=== PATIENT | male | born 1945 | race Caucasian/White ===

== ENCOUNTER 2019-11-20 10:16 | Outpatient (RCR) | payer MEDICAID, SELFPAY | END 2019-11-20 23:59 | disposition home or self-care (01) | LOC: ANHAUDIO 10:16 | PROVIDERS: PCP Family Medicine; Visit Provider Family Medicine | DX: Z46.1 Encounter for fitting and adjustment of hearing aid (principal) | CPT/HCPCS: V5160; V5261 ==

== ENCOUNTER 2020-05-10 15:30 | Emergency (ER) | payer MEDICARE, MEDICAID, SELFPAY ==
--- NOTE | ~2020-05-10 | CT_ITS ---
EXAMINATION: CT brain wo con DATE: 05/10/2020 16:06 INDICATION: Headache TECHNIQUE: Computed tomography (CT) of the head was performed without intravenous contrast. Sagittal and coronal reconstructions were performed. The mA was adjusted according to patient size. Iterative reconstruction technique was employed. The dose-length product was 605.33 mGy-cm. COMPARISON: head CT dated 09/03/2006 FINDINGS: No acute intracranial hemorrhage, acute infarction or abnormal extra axial fluid collection. There is mild scattered white matter hypoattenuation consistent with chronic small vessel ischemic disease. V entricles are normal and symmetric. No mass/mass effect. Changes of bilateral intraocular lens replac ement. The orbits, paranasal sinuses and mastoid air cells are normal. Intracranial calcified cerebra l atherosclerosis is noted. IMPRESSION: 1. Mild scattered white matter hypoattenuation consistent with chronic small vessel ischemic disease. No acute intracranial process. Reviewed, dictated and finalized at location A. IMPRESSION: 1. Mild scattered white matter hypoattenuation consistent with chronic small ve ssel ischemic disease. No acute intracranial process.
--- NOTE | ~2020-05-10 | CT_ITS ---
EXAMINATION: CT cervical spine wo con DATE: 05/10/2020 16:06 INDICATION: Neck pain TECHNIQUE: Computed tomography (CT) of the cervical spine was performed without intravenous contrast. Automated exposure control and iterative reconstruction technique were employed. The dose-length pro duct was 503.01 mGy-cm. COMPARISON: Neck CT dated 09/05/2006 FINDINGS: C5-C6 and C6-C7 discectomies and partial C6 corpectomy with anterior spinal fusion with solidly fused bone strut grafts at both levels. Mild kyphosis at these levels. Unfused vertebral body and disc hei ghts are normal. Prominent anterior osteophytes and ossification along the anterior longitudinal liga ment extending from C2 through T1. No acute fracture. There are some hypertrophic change along the po sterior endplate of C6 resulting in mild central canal stenosis. Bilateral mild to moderate multileve l uncovertebral and facet osteoarthritis resulting in multilevel mild bilateral neural foraminal sten osis throughout the cervical spine. Atherosclerotic calcific a cyst at the bilateral carotid bulbs. T here are few surgical clips along the right common carotid artery and carotid bulb. Cervical soft tis sues are otherwise unremarkable. There are few calcified lymph nodes in the superior mediastinum cons istent with old granulomatous disease. Visualized portions of the airway and apices of the lungs are clear. IMPRESSION: 1. Cervical spondylosis with mild to moderate multilevel facet and uncovertebral osteoarthritis and C 5-C7 anterior spinal fusion. No acute osseous abnormality. Reviewed, dictated and finalized at location A. IMPRESSION: 1. Cervical spondylosis with mild to moderate multilevel facet and uncovertebra l osteoarthritis and C5-C7 anterior spinal fusion. No acute osseous abnormality .
[2020-05-10 15:33] VITALS: BP 151/86; PULSE 76; RESP 20; TEMP 37.1; O2SAT 100
--- NOTE | 2020-05-10 15:52 | ECG_ITS ---
Measurements Intervals [place] Rate: 73 P: 19 MT: 215 QRS: -42 QRSD: 121 T: 8 QT: 410 QTc: 453 Interpretive Statements SINUS RHYTHM WITH FIRST DEGREE AV BLOCK RIGHT BUNDLE BRANCH BLOCK INFERIOR INFARCT, AGE INDETERMINATE BASELINE WANDER- I, II, V1-V3 ABNORMAL ECG Electronically Signed On 05-11-2020 8:08:50 CDT by George Thompson D.O.
--- NOTE | 2020-05-10 15:56 | ED.HA ---
HPI - Headache General Chief Complaint: Headache Stated Complaint: headache/blurred vision Time Seen by Provider: 05/10/20 15:42 History of Present Illness HPI Narrative: Patient is a 74-year-old male who presents the ER with headache. residential reports that they gave him Tylenol the headache did not improve and they became concerned. Patient also reports double vision but he is also been reporting this over the last month since having cataract surgery. Patient reports double vision is intermittent and he is not currently suffering double vision at this time. Headache is in the back of his head near his neck. Reports he has recurrent falls. He is unsure when he fell last. Patient is oriented x3 but otherwise he cannot give a good history regarding his history of medical issues or as to why he is in a group home. Related Data Home Medications Medication Instructions Recorded Confirmed alprazolam 1 mg PO TID PRN 05/10/20 furosemide 40 mg PO DAILY 05/10/20 gabapentin 300 mg PO TID 05/10/20 insulin lispro 1 sliding scale dose SUBCUT 05/10/20 USEASDIRECTD metformin 500 mg PO DAILY 05/10/20 mirabegron [Myrbetriq] 50 mg PO DAILY 05/10/20 pantoprazole 40 mg PO HS 05/10/20 ranolazine 500 mg PO Q12H 05/10/20 sertraline 100 mg PO DAILY 05/10/20 simvastatin 40 mg PO DAILY 05/10/20 tamsulosin 0.4 mg PO DAILY 05/10/20 Allergies Allergy/AdvReac Type Severity Reaction Status Date / Time No Known Allergies Allergy Unknown Verified 05/10/20 15:41 Review of Systems Review of Systems: All systems reviewed & are unremarkable except as noted in HPI and below (Poor historian) Constitutional: Constitutional: Denies chills, Denies fever(s) and Denies weakness Eyes: Eyes: Reports change in vision (Diplopia intermittent) ENT: Denies nasal congestion and Denies sore throat Cardiovascular: Cardiovascular: Denies chest pain and Denies radiating jaw, neck or arm pain Respiratory: Respiratory: Denies cough, Denies dyspnea and Denies wheezing Gastrointestinal: Gastrointestinal: Denies abdominal pain, Denies nausea and Denies vomiting Neurologic: Denies dizziness, Reports headache(s), Denies focal weakness and Denies numbness [facility] Past Medical History Medical History (Updated 05/10/20 @ 18:00 by Gus Rivas MD) Anxiety BPH (benign prostatic hyperplasia) Depression Diabetes type 2, controlled History of CHF (congestive heart failure) History of coronary artery disease Hypercholesterolemia Hypertension Surgical History Surgical History (Updated 05/10/20 @ 16:00 by Gus Rivas MD) Hx of cataract surgery Social History Social History (Updated 05/10/20 @ 16:02 by Gus Rivas MD) Smoking status: Never smoker Alcohol intake: never Exam Narrative: Exam Narrative: GENERAL: Well-appearing, well-nourished, and in no acute distress. HEAD: Normocephalic, atraumatic. EYES: PERRL and EOMI. ENT: Mucous membranes moist. NECK: Supple. Mild right paravertebral muscle tenderness without midline tenderness or left sided muscular tenderness. CHEST: Clear to auscultation. No respiratory distress. HEART: Regular rate and rhythm. Normal peripheral pulses. EXTREMITIES: Normal range of motion. No edema. NEURO: Alert and oriented x3. PSYCH: Normal mood and affect. Course Course Emergency Course: Patient informed of results. Discharge home. No longer has a headache. Vital Signs Vital signs: Vital Signs Temperature 98.7 F 05/10/20 15:33 Pulse Rate 76 05/10/20 15:33 Respiratory Rate 20 05/10/20 15:33 Blood Pressure 151/86 H 05/10/20 15:33 Pulse Oximetry 100 05/10/20 15:33 Temperature 98.7 F 05/10/20 15:33 Pulse Rate 73 05/10/20 17:23 Respiratory Rate 20 05/10/20 17:23 Blood Pressure 153/79 H 05/10/20 17:23 Pulse Oximetry 98 05/10/20 17:23 Discharge Plan Discharge Clinical Impression: Headache Patient Disposition: Home, Self-Care Condition:
[2020-05-10 17:23] VITALS: BP 153/79; PULSE 73; RESP 20; O2SAT 98
[2020-05-10 19:37] VITALS: BP 140/80; PULSE 74; RESP 20; TEMP 36.7; O2SAT 99
== END 2020-05-10 20:05 | disposition home or self-care (01) ==
PROVIDERS: Emergency Provider Emergency Medicine; PCP Family Medicine
DX: R51 Headache (principal); N40.0 Benign prostatic hyperplasia without lower urinary tract symptoms; I50.9 Heart failure, unspecified; E11.9 Type 2 diabetes mellitus without complications; I25.10 Atherosclerotic heart disease of native coronary artery without angina pectoris; E78.00 Pure hypercholesterolemia, unspecified; I11.0 Hypertensive heart disease with heart failure; F32.9 Major depressive disorder, single episode, unspecified; F41.9 Anxiety disorder, unspecified; Z98.49 Cataract extraction status, unspecified eye; Z79.4 Long term (current) use of insulin; Z79.84 Long term (current) use of oral hypoglycemic drugs; I44.0 Atrioventricular block, first degree; I45.10 Unspecified right bundle-branch block; R94.31 Abnormal electrocardiogram [ECG] [EKG]
CPT/HCPCS: 70450; 72125; 93005; 99284

== ENCOUNTER 2020-09-09 12:39 | Outpatient (CLI) | payer MEDICARE, MEDICAID, SELFPAY ==
--- NOTE | ~2020-09-09 | XR_ITS ---
XR abdomen/kub 1V 09/09/2020 12:58 Indication: Gross hematuria Procedure: KUB Comparison: No prior studies for comparison. Findings: There are multiple bilateral renal stones. There are multiple calcified granulomas of the spleen. The kidneys are somewhat obscured by bowel content. There are cholecystectomy clips. Nonobstructive jabier l gas pattern. Impression: 1: Bilateral nephrolithiasis. Reviewed, dictated and finalized at location B. Impression: 1: Bilateral nephrolithiasis.
--- NOTE | ~2020-09-09 | CT_ITS ---
EXAMINATION: CT abdomen pelvis wo/w con EXAM DATE: 09/09/2020 13:35 INDICATION: Gross hematuria. TECHNIQUE: Spiral CT of the abdomen and pelvis was performed without contrast. The patient was then injected with small bolus intravenous Omnipaque 350, followed by delay of approximately 10 minutes to allow collecting system to opacify. A post contrast scan abdomen and pelvis was performed during inj ection of remaining contrast. A total of 130 cc intravenous contrast was administered. The dose-dana th product (DLP) for this examination was 3085.42 mGy-cm. The exposure was tailored according to pat ient size (auto mA exposure control), and iterative reconstruction (ASIR) was used as additional dose reduction technique. There is no prior study for comparison. FINDINGS: There are 4 right-sided calyceal stones. 3 left-sided calyceal stones, largest on the right measuring 4 mm in thickness by 12 mm in length. Patulous appearing ureters bilaterally, however ther e are no obstructing ureteral stones. Small bilateral inguinal fat-containing hernias. The kidneys en milagros symmetrically. There are no suspicious renal lesions. The calyces and opacified portions of u reters are unremarkable, without filling defects or focal suspicious strictures. Only minimal contra st in the bladder, however no evidence of focal wall thickening. Probable TURP versus prostatectomy, correlate with history. Nodular cirrhotic liver. Gallbladder not identified, patient likely has had cholecystectomy. Splenic granulomata. Adrenal glands and pancreas are unremarkable. There is no retroperitoneal or pelvic ly mphadenopathy. There is mild scattered arteriosclerotic disease. The appendix is normal. The stomach and small bowel are unremarkable. There is expected amount of c olonic stool. No free intraperitoneal gas. The heart is normal in size. There are no pericardial or pleural effusions. Scattered regions of bibasilar scarring/atelectasis. There are no osteoblast ic or osteolytic lesions identified. IMPRESSION: 1. Bilateral nephrolithiasis. 2. Small inguinal hernias. 3. Cirrhosis. 4. Basilar scarring, bronchiectasis. Reviewed, dictated and finalized at location A.
[2020-09-09 13:11] LABS: Estimated Glomerular Filt Rate > 60
== END 2020-09-09 12:40 | disposition home or self-care (01) ==
PROVIDERS: PCP Family Medicine; Visit Provider Nurse Practitioner Adult Health
DX: R31.0 Gross hematuria (principal); N20.0 Calculus of kidney; K40.90 Unilateral inguinal hernia, without obstruction or gangrene, not specified as recurrent; K74.69 Other cirrhosis of liver; R91.8 Other nonspecific abnormal finding of lung field
CPT/HCPCS: 74018; 74178; Q9967

== ENCOUNTER 2020-10-02 11:43 | Outpatient (CLI) | payer MEDICARE, MEDICAID, SELFPAY ==
--- NOTE | ~2020-10-02 | XR_ITS ---
EXAMINATION: XR abdomen/kub 1V EXAM DATE: 10/02/2020 12:14 INDICATION: Right renal stone. TECHNIQUE: Frontal projection(s) of the abdomen for interpretation. Comparison is made to prior exami nation from 09/09/2020. FINDINGS: Probable identification of bilateral nephrolithiasis. Nonobstructive bowel gas pattern. Num erous splenic granulomata. There are cholecystectomy clips. Lumbar spondylosis and hip osteoarthritis . IMPRESSION: Bilateral nephrolithiasis. Reviewed, dictated and finalized at location A. 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
== END 2020-10-02 11:44 | disposition home or self-care (01) ==
PROVIDERS: PCP Internal Medicine; Visit Provider Nurse Practitioner Adult Health
DX: N20.0 Calculus of kidney (principal)
CPT/HCPCS: 74018

== ENCOUNTER 2020-10-07 02:58 | Outpatient (CLI) | payer MEDICARE, MEDICAID, SELFPAY ==
[2020-10-07 19:46] LABS: SARS-CoV-2 RNA PCR Negative
== END 2020-10-07 02:59 | disposition home or self-care (01) ==
LOC: ANHCOVIDDT 02:59
PROVIDERS: PCP Internal Medicine; Visit Provider Urology
DX: Z01.818 Encounter for other preprocedural examination (principal); Z20.828 Contact with and (suspected) exposure to other viral communicable diseases
CPT/HCPCS: 36415; 80048; 85610; 85730; 87077; 87086; 87088; 87186; 87635; C9803; U0003

== ENCOUNTER 2020-10-07 08:31 | Outpatient (CLI) | payer MEDICARE, MEDICAID, SELFPAY ==
[2020-10-07 09:16] LABS: INR 1.1; Partial Thromboplastin Time 28.6 SECONDS (22.3-36.8); Prothrombin Time 14.4 Seconds (11.1-14.7)
[2020-10-07 09:19] LABS: Anion Gap 10 mmol/L (8-16); Blood Urea Nitrogen 20 mg/dL (9-20); Calcium 9.8 mg/dL (8.4-10.2); Carbon Dioxide 31 mmol/L (22-30); Chloride 98 mmol/L (98-107); Estimated Glomerular Filt Rate 59; Glucose 131 mg/dL (75-110); Potassium 4.4 mmol/L (3.4-5.0); Sodium 139 mmol/L (137-145)
== END 2020-10-07 08:32 | disposition home or self-care (01) ==
PROVIDERS: Anesthesiology; PCP Internal Medicine; Visit Provider Urology
DX: N20.0 Calculus of kidney (principal); E11.9 Type 2 diabetes mellitus without complications; Z01.818 Encounter for other preprocedural examination
CPT/HCPCS: 36415; 80048; 85610; 85730; 87077; 87086; 87088; 87186

== ENCOUNTER 2020-10-10 04:43 | Day surgery (SDC) | payer MEDICARE, MEDICAID, SELFPAY ==
[2020-10-06 15:00] VITALS: BMI 43.5
--- NOTE | 2020-10-07 08:04 | PM.HPGS ---
History of Present Illness History of Present Illness Consent: Risks, benefits, and alternatives have been discussed and questions answered. Patient agrees to proceed with procedure. Chief complaint: Right Renal Stone, Gross Hematuria Narrative: Iain Ricks Sr. is a 75 year old male who recently underwent evaluation for obstructive voiding symptoms and hematuria. CT of the abdomen and pelvis revealed bilateral he renal stones, greater in size and number on the right. After discussion of options, including observation endoscopic approach and ESWL, he elected for the latter. Review of Systems Cardiovascular: Cardiovascular: Denies chest pain, Denies lightheadedness, Denies palpitations and Denies dyspnea Respiratory: Respiratory: Denies dyspnea Gastrointestinal: Gastrointestinal: Denies diarrhea, Denies nausea and Denies vomiting Genitourinary: Genitourinary: Denies hematuria and Denies dysuria Endocrine: Endocrine: Denies palpitations PMFSH Past Medical History Medical History Anxiety BPH (benign prostatic hyperplasia) Depression Diabetes type 2, controlled History of CHF (congestive heart failure) History of coronary artery disease Hypercholesterolemia Hypertension Surgical History Surgical History Hx of cataract surgery Social History Social History Smoking status: Never smoker Alcohol intake: former Substance use: unknown Additional living arrangements comments: ALONE, CAREGIVER 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 Spiritual care concerns: No Meds Home Medications and Allergies Home Medications Medication Instructions Recorded Confirmed Type alprazolam 1 mg PO TID 05/10/20 10/06/20 History metformin 500 mg PO DAILY 05/10/20 10/06/20 History mirabegron [Myrbetriq] 50 mg PO DAILY 05/10/20 10/06/20 History ranolazine [Ranexa] 500 mg PO Q12H 05/10/20 10/06/20 History simvastatin 40 mg PO DAILY 05/10/20 10/06/20 History tamsulosin 0.4 mg PO DAILY 05/10/20 10/06/20 History aspirin [Aspir-81] 81 mg PO DAILY 10/06/20 10/06/20 History carvedilol 6.25 mg PO BID 10/06/20 10/06/20 History celecoxib 200 mg PO DAILY 10/06/20 10/06/20 History ergocalciferol (vitamin D2) 50,000 unit PO 2XW 10/06/20 10/06/20 History finasteride 5 mg PO DAILY 10/06/20 10/06/20 History losartan 50 mg PO DAILY 10/06/20 10/06/20 History pantoprazole 40 mg PO DAILY 10/06/20 10/06/20 History potassium citrate 40 meq PO DAILY 10/06/20 10/06/20 History pregabalin [Lyrica] 75 mg PO BID 10/06/20 10/06/20 History primidone 50 mg PO BID 10/06/20 10/06/20 History sertraline 50 mg PO BID 10/06/20 10/06/20 History vitamin B complex [B 1 tablet PO DAILY 10/06/20 10/06/20 History Complex-Vitamin B12] Allergies Allergy/AdvReac Type Severity Reaction Status Date / Time No Known Allergies Allergy Unknown Verified 10/06/20 14:29 Exam Const: General: no acute distress Resp: Effort & Inspection: normal respiratory effort GI: Inspection: non-distended GI Palp: No abdominal tenderness and No Guarding due to palpation present (GI) Auscultation: normal bowel sounds Assessment and Plan Assessment and plan (1) Bilateral renal stones: Code(s): N20.0 - Calculus of kidney Status: Acute Assessment and Plan: Right ESWL with possible cystoscopy and right ureteral stent placement.
[2020-10-10] VITALS (9 sets, daily range): BP systolic 113–174; BP diastolic 67–85; PULSE 76–84; RESP 12–20; TEMP 36.1–36.6; O2SAT 94–100
--- NOTE | ~2020-10-10 | XR_ITS ---
EXAMINATION: XR abdomen/kub 1V DATE: 10/10/2020 06:31 INDICATION: Kidney stone. TECHNIQUE: A supine view of the abdomen on 2 radiographs was obtained. COMPARISON: CT abdomen and pelvis 09/09/2020 FINDINGS: There are no dilated loops of bowel. Surgical clips in the right upper quadrant are likely from cholecystectomy. There are 2 stones in right kidney with the larger measuring 6 mm. There are 3 stones in left kidney measuring up to 6 mm. IMPRESSION: 1. Bilateral kidney stones. Reviewed, dictated and finalized at location A. [employer] IMPRESSION: 1. Bilateral kidney stones.
--- NOTE | 2020-10-10 06:10 | WPDHPUPDATE1 ---
History and Physical Update Update Date/Time: 10/10/20 06:10 History and Physical has been reviewed, including an updated exam of the patient. There are NO changes in the patient's condition. Risks, benefits, and alternatives have been discussed and questions answered. Patient agrees to proceed with procedure.
--- NOTE | 2020-10-10 07:26 | WPDANESEPPF ---
Anes - Initial Pre Proc Eval Procedure: Operation Date: 10/10/20 08:30 Proposed Procedures p Right Renal Extracorporeal Shock Wave Lithotripsy - Latrell Rose MD s Diagnostic Cystoscopy With Possible Right Stent Placement - Latrell Rose MD Date/Time: 10/10/20 07:26 Surgeon: Latrell Rose MD Pre Op Diagnosis: Right Renal Stone, Gross Hematuria Patient Data Age: 75 Gender: M Height: 1.73 m Weight: 115 kg Allergies Allergy/AdvReac Type Severity Reaction Status Date / Time No Known Allergies Allergy Unknown Verified 10/06/20 14:29 Home Medications Medication Instructions Recorded Confirmed Type alprazolam 1 mg PO TID 05/10/20 10/06/20 History metformin 500 mg PO DAILY 05/10/20 10/06/20 History mirabegron [Myrbetriq] 50 mg PO DAILY 05/10/20 10/06/20 History ranolazine [Ranexa] 500 mg PO Q12H 05/10/20 10/06/20 History simvastatin 40 mg PO DAILY 05/10/20 10/06/20 History tamsulosin 0.4 mg PO DAILY 05/10/20 10/06/20 History carvedilol 6.25 mg PO BID 10/06/20 10/06/20 History ergocalciferol (vitamin D2) 50,000 unit PO 2XW 10/06/20 10/06/20 History finasteride 5 mg PO DAILY 10/06/20 10/06/20 History losartan 50 mg PO DAILY 10/06/20 10/06/20 History pantoprazole 40 mg PO DAILY 10/06/20 10/06/20 History potassium citrate 40 meq PO DAILY 10/06/20 10/06/20 History pregabalin [Lyrica] 75 mg PO BID 10/06/20 10/06/20 History primidone 50 mg PO BID 10/06/20 10/06/20 History sertraline 50 mg PO BID 10/06/20 10/06/20 History vitamin B complex [B 1 tablet PO DAILY 10/06/20 10/06/20 History Complex-Vitamin B12] Patient hx anesthesia problems: none Family hx anesthesia problems: none PMFSH Past Medical History Medical History (Updated 10/10/20 @ 07:21 by Syed Mittal DO) Anxiety BPH (benign prostatic hyperplasia) Cirrhosis Depression Diabetes type 2, controlled History of CHF (congestive heart failure) History of coronary artery disease Hypercholesterolemia Hypertension Surgical History Surgical History (Updated 10/10/20 @ 07:21 by Syed Mittal DO) History of coronary artery stent placement Hx of CABG 20 years ago Hx of cataract surgery Social History Social History Smoking status: Never smoker Alcohol intake: former 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 Substance use: unknown Living arrangements: alone Additional living arrangements comments: ALONE, CAREGIVER 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 Questions were solicited and answers provided to the satisfaction of the patient/family/POA.
[2020-10-10] MEDS: LACTATED RINGERS 1,000 ML 30 ML IV CONT (07:30)
[2020-10-10 07:52] LABS: Glucose Point of Care 138 (65-105)
[2020-10-10] MEDS: LIDOCAINE HCL 2% GEL UROJET 10 ML PKG MUCOUS MEM (08:59)
--- NOTE | 2020-10-10 09:16 | P.OP_ITS ---
Procedure Note - Detailed Date of procedure: 10/10/20 Pre-op diagnosis: Right Renal Stone, Gross Hematuria Post-op diagnosis: same Procedure performed: 1. Flexible cystoscopy 2. Right ESWL Description of procedure: The patient was brought to the operative suite where he was placed in the supine position on the Dornier lithotripter table. Flexible cystoscopy was undertaken with a 16F flexible cystoscopy. There were no urethral strictures. The prostatic urethra estimated length was 1.5cm with evidence of prior TURP. The bladder mucosa was normal and there was a single, orthotopic ureteral orifice bilaterally. The patient was then repositioned in the supine position with the focal point of the lithotriptor on two contiguous right lower renal calculi. A total of 2500 shocks were delivered at a power setting of 4. There appeared to be good fragmentation of the stone. The patient tolerated the procedure well and was taken to the recovery room in good condition. Anesthesia: GLMA Surgeon: Latrell Rose MD [employer] Director: None Drains: No Packing: No Pathology: none sent Complications: No immediate complications Condition: stable Disposition: PACU
[2020-10-10 10:02] LABS: Glucose Point of Care 180 (65-105)
== END 2020-10-10 11:15 | disposition home or self-care (01) ==
PROVIDERS: PCP Internal Medicine; Visit Provider Urology
PROC: (CPT 50590; principal; 2020-10-10 08:30)
PROC: (CPT 52352; 2020-10-10 08:30)
DX: N20.0 Calculus of kidney (principal); R31.0 Gross hematuria; I11.0 Hypertensive heart disease with heart failure; I50.9 Heart failure, unspecified; N40.0 Benign prostatic hyperplasia without lower urinary tract symptoms; E11.9 Type 2 diabetes mellitus without complications; I25.10 Atherosclerotic heart disease of native coronary artery without angina pectoris; E78.00 Pure hypercholesterolemia, unspecified; F41.9 Anxiety disorder, unspecified; Z79.84 Long term (current) use of oral hypoglycemic drugs; Z79.82 Long term (current) use of aspirin
CPT/HCPCS: 50590; 74018; A9270; C1769; J1100; J2250; J2405; J2704; J3010; J3370; J7030; J7120

== ENCOUNTER 2020-10-23 08:30 | Outpatient (RCR) | payer MEDICAID, SELFPAY | END 2020-10-23 23:59 | disposition home or self-care (01) | LOC: ANHAUDIO 08:30 | PROVIDERS: PCP Family Medicine; Visit Provider Family Medicine | DX: Z46.1 Encounter for fitting and adjustment of hearing aid (principal) | CPT/HCPCS: 99199 ==

== ENCOUNTER 2020-11-11 11:26 | Emergency (ER) | payer MEDICARE, MEDICAID, SELFPAY ==
[2020-11-11] VITALS (38 sets, daily range): BP systolic 112–153; BP diastolic 50–70; PULSE 77–95; RESP 18–20; TEMP 36.6; O2SAT 79–97
--- NOTE | ~2020-11-11 | CT_ITS ---
EXAMINATION: CT abdomen pelvis w con INDICATION: Urine and stool retention TECHNIQUE: Computed tomographic images of the abdomen and pelvis were obtained after the administrati on of 100 cc of Omnipaque 350 intravenous contrast. The dose-length product (DLP) was 1588.65 mGy-cm. Automated exposure control and iterative reconstruction technique were employed. COMPARISON: 09/09/2020 FINDINGS: Cardiomegaly is noted. There is smooth interlobular septal thickening as well as airspace o pacity in the visualized lung bases. Punctate calcifications in an otherwise normal spleen likely rep resent healed granulomatous disease. The liver surface is nodular. The gallbladder is surgically abse nt. The pancreas and adrenal glands are normal. Nonobstructing stones of the kidneys measure up to 11 mm on the right and 7 mm on the left. No stones are identified in the ureters or bladder. The bladde r is decompressed by Potts catheter. There is calcified atherosclerosis of the aorta and many of the other arteries. No pathologically enlarged abdominal or pelvic lymph nodes are identified. There is n o free intraperitoneal gas or evidence of bowel obstruction. There is mild lumbar spondylosis. There are bilateral inguinal hernias containing fat. IMPRESSION: 1. No CT correlate for the patient's symptoms. 2. Bilateral nonobstructing nephrolithiasis. 3. Cirrhosis. 4. Cardiomegaly with likely mild pulmonary edema in the visualized lung bases. Reviewed, dictated and finalized at location A. ER
--- NOTE | 2020-11-11 11:40 | PC.NURSE ---
patient brought to this ED by his family with possible urinary retention and constipation. patient is [place] and a poor historian. unclear if patient last voided at 0100 today or 0600. unclear if patient had BM since yesterday but does state he did take laxatives and feels better . alert. oriented. no distress noted. SL inserted. labs sent. attempted to bladder scan patient but no obvious urinary retention. waiting for orders from provider.
--- NOTE | 2020-11-11 11:50 | PC.NURSE ---
#16fr browne catheter inserted without difficulty. urine back yellow but cloudy. will monitor. approximately 200ml out of catheter. call light in reach.
--- NOTE | 2020-11-11 12:06 | ED.ABDPAIN ---
HPI - Abdominal Pain General Chief Complaint: Abdominal Pain Stated Complaint: Unable to urinate Time Seen by Provider: 11/11/20 11:32 Source: patient Mode of arrival: ambulatory Limitations: no limitations History of Present Illness HPI narrative: Patient was brought to the emergency room by his family due to decreased urination over the past 24 hours. Patient states he had very decreased urination and bowel movements yesterday however he took his medication to assist with his bowel movements that have both bowel movement and urination at either 1 or 6 AM this morning. He states that he is not urinated or had a bowel movement since. Patient states that his family became concerned as he complained of diffuse abdominal pain so they brought him to the emergency department. Patient still reports diffuse abdominal pain. Patient reports that last month he had a lithotripsy performed by Dr. Morales to remove kidney stones without complication. Patient states he is also had a TURP procedure performed in the past many years ago and he is not sure when exactly. Patient denies fever, chills, nausea, vomiting, blood or mucus in his stool, chest pain, shortness of breath or other symptoms. Related Data Home Medications Medication Instructions Recorded Confirmed Myrbetriq 50 mg PO DAILY 05/10/20 10/10/20 alprazolam 1 mg PO TID 05/10/20 10/10/20 metformin 500 mg PO DAILY 05/10/20 10/10/20 ranolazine [Ranexa] 500 mg PO Q12H 05/10/20 10/10/20 simvastatin 40 mg PO DAILY 05/10/20 10/10/20 tamsulosin 0.4 mg PO DAILY 05/10/20 10/10/20 carvedilol 6.25 mg PO BID 10/06/20 10/10/20 ergocalciferol (vitamin D2) 50,000 unit PO 2XW 10/06/20 10/10/20 finasteride 5 mg PO DAILY 10/06/20 10/10/20 losartan 50 mg PO DAILY 10/06/20 10/10/20 pantoprazole 40 mg PO DAILY 10/06/20 10/10/20 potassium citrate 40 meq PO DAILY 10/06/20 10/10/20 pregabalin [Lyrica] 75 mg PO BID 10/06/20 10/10/20 primidone 50 mg PO BID 10/06/20 10/10/20 sertraline 50 mg PO BID 10/06/20 10/10/20 vitamin B complex [B 1 tablet PO DAILY 10/06/20 10/10/20 Complex-Vitamin B12] Allergies Allergy/AdvReac Type Severity Reaction Status Date / Time No Known Allergies Allergy Unknown Verified 11/11/20 11:40 Review of Systems Review of Systems: Narrative: CONSTITUTIONAL: Denies fever, chills, or sweats. EYES: Denies visual changes, redness, or discharge. ENT: Denies rhinorrhea, congestion, sore throat, or otalgia. CARDIOVASCULAR: Denies chest pain, palpitations, or edema. RESPIRATORY: Denies cough or dyspnea. GASTROINTESTINAL: Reports diffuse abdominal pain and constipation denies nausea, vomiting, or diarrhea. GENITOURINARY: Reports urinary retention denies dysuria or hematuria. SKIN: Denies rash or itching. MUSCULOSKELETAL: Denies back pain, joint pain, or myalgia. NEUROLOGIC: Denies headache, numbness, dizziness, or weakness. PSYCHIATRIC: Denies anxiety or depression. [facility] Past Medical History Medical History (Updated 11/11/20 @ 16:03 by Shari Blanton PA-C) Anxiety BPH (benign prostatic hyperplasia) Cirrhosis Depression Diabetes type 2, controlled History of CHF (congestive heart failure) History of coronary artery disease Hypercholesterolemia Hypertension Surgical History Surgical History (Updated 10/10/20 @ 07:21 by Syed Mittal DO) History of coronary artery stent placement Hx of CABG 20 years ago Hx of cataract surgery Social History Social History Smoking status: Never smoker Alcohol intake: former Substance use: unknown Additional living arrangements comments: ALONE, 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 HEAD: Normocephalic, atraumatic. EYES: PERRLA and EOMI. NECK: Supple. Range of motion intact CHEST: Clear to auscultation. No respiratory distress. No wheezes
[2020-11-11 12:08] LABS: Basophils Absolute Auto 0.1 K/mm3 (0.0-0.1); Basophils Percent Auto 0.7 % (0.2-1.2); Eosinophils Absolute Auto 0.3 K/mm3 (0-0.3); Eosinophils Percent Auto 3.8 % (0-4.4); Hematocrit 39.8 % (42.0-52.0); Hemoglobin 13.4 g/dL (14.0-18.0); Immature Granulocyte Absolute 0.03 K/mm3 (0.00-0.031); Immature Granulocyte Percent A 0.4 % (0-0.5); Lymphocytes Absolute Auto 2.78 K/mm3 (0.9-3.2); Lymphocytes Percent Auto 37.7 % (18.3-44.2); Mean Corpuscular HGB Conc 33.7 g/dl (32-36); Mean Corpuscular Hemoglobin 29.7 pg (26-34); Mean Corpuscular Volume 88.2 fl (80-100); Mean Platelet Volume 9.2 fl (7.4-10.4); Monocytes Absolute Auto 0.8 K/mm3 (0.1-0.6); Monocytes Percent Auto 10.3 % (2.6-8.5); Neutrophils Absolute Auto 3.5 K/mm3 (1.3-6.7); Neutrophils Percent Auto 47.1 % (45.5-73.1); Platelet Count Result 163 k/mm3 (150-375); Red Blood Count 4.51 M/mm3 (4.6-6.20); Red Cell Distribution Width 14.9 % (11.5-14.5); White Blood Count 7.4 K/mm3 (4.5-10.0)
[2020-11-11 12:12] LABS: Add Urine Microscopic? YES; Amorphous Sediment Urine Few; Appearance Urine Clear (Clear); Bilirubin Urine Negative (Negative); Blood Urine Negative (Negative); Color Urine Yellow (Yellow); Glucose Urine UA 1+ mg/dL (Negative); Ketones Urine Negative (Negative); Leukocyte Esterase Ur Negative LEU/UL (Negative); Mucus Urine Rare /lpf; Nitrate Urine Negative (Negative); Protein Urine 1+ mg/dL (Negative); RBC Urine 0-2 /hpf (0-2); Specific Grav Ur 1.015 (1.001-1.035); Squamous Epithelial Cell Urine Rare /hpf (Few); Urobilinogen Urine Negative mg/dL (<2.0); WBC Urine 0-3 /hpf
[2020-11-11 13:19] LABS: Alanine Aminotransferase 19 U/L (4-50); Albumin Level 3.4 g/dL (3.5-5.1); Alkaline Phosphatase 65 U/L (38-126); Anion Gap 6 mmol/L (8-16); Aspartate Amino Transferase 22 U/L (17-59); Bilirubin,Total 0.4 mg/dL (0.2-1.3); Blood Urea Nitrogen 11 mg/dL (9-20); Calcium 8.8 mg/dL (8.4-10.2); Carbon Dioxide 28 mmol/L (22-30); Chloride 100 mmol/L (98-107); Estimated CRCL calculation 58 ml/min; Estimated Glomerular Filt Rate 59; Glucose 228 mg/dL (75-110); Potassium 4.3 mmol/L (3.4-5.0); Sodium 134 mmol/L (137-145)
== END 2020-11-11 16:14 | disposition home or self-care (01) ==
PROVIDERS: Physician Assistant; Emergency Provider Emergency Medicine; PCP Internal Medicine
DX: R30.0 Dysuria (principal); Z71.1 Person with feared health complaint in whom no diagnosis is made; F41.9 Anxiety disorder, unspecified; N40.0 Benign prostatic hyperplasia without lower urinary tract symptoms; F32.9 Major depressive disorder, single episode, unspecified; E11.9 Type 2 diabetes mellitus without complications; I11.0 Hypertensive heart disease with heart failure; I50.9 Heart failure, unspecified; I25.10 Atherosclerotic heart disease of native coronary artery without angina pectoris; E78.5 Hyperlipidemia, unspecified
CPT/HCPCS: 36415; 74177; 80053; 81001; 85025; 99284; Q9967

== ENCOUNTER 2022-06-14 09:30 | Emergency (ER) | payer MEDICARE, MEDICAID, SELFPAY ==
--- NOTE | ~2022-06-14 | CT_ITS ---
EXAMINATION: CT abdomen pelvis w con INDICATION: Diffuse abdominal pain TECHNIQUE: Computed tomographic images of the abdomen and pelvis were obtained after the administrati on of 100 cc of Omnipaque 300 intravenous contrast. The dose-length product (DLP) was 1684.07 mGy-cm. Automated exposure control and iterative reconstruction technique were employed. COMPARISON: 11/11/2020 FINDINGS: Cardiomegaly is noted. There are interstitial opacities and interlobular septal thickening in the visualized lung bases. Punctate calcifications in an otherwise normal spleen likely represent healed granulomatous disease. The gallbladder is surgically absent. There is nodularity of the liver surface. The pancreas and adrenal glands are normal. There are 4 mm nonobstructing stones in the lowe r poles of the kidneys. Peripelvic cysts are noted in the kidneys. There is a tiny focus of gas in th e nondependent portion of the urinary bladder, correlate for catheterization. No pathologically enlar ged abdominal or pelvic lymph nodes are identified. There is no free intraperitoneal gas or evidence of bowel obstruction. There is calcified atherosclerosis of the aorta and many of the other arteries. There is wall thickening of the mid ascending colon. There is mild lumbar spondylosis. IMPRESSION: 1. Cardiomegaly with pulmonary edema. 2. Cirrhosis. 3. Wall thickening of the mid ascending colon which could reflect colitis however malignancy could corbin ve a similar appearance. Correlate with colonoscopy history. 4. Bilateral nonobstructing nephrolithiasis. Reviewed, dictated and finalized at location B. IMPRESSION: 1. Cardiomegaly with pulmonary edema. 2. Cirrhosis. 3. Wall thickening of the mid ascending colon which could reflect colitis howev er malignancy could have a similar appearance. Correlate with colonoscopy histo ry. 4. Bilateral nonobstructing nephrolithiasis.
--- NOTE | ~2022-06-14 | XR_ITS ---
EXAMINATION: XR chest 1V portable INDICATION: Pulmonary edema TECHNIQUE: Portable AP chest at 1522 hours COMPARISON: CT from today FINDINGS: Cardiomegaly is noted. There is a mild diffuse interstitial pattern. Median sternotomy wire s and mediastinal surgical clips are seen, likely from prior coronary artery bypass grafting. No pleu ral effusion or pneumothorax. A calcified nodule of the right middle lobe is consistent with old gran ulomatous disease. IMPRESSION: 1. Cardiomegaly with mild pulmonary edema. Reviewed, dictated and finalized at location B.
--- NOTE | ~2022-06-14 | CT_ITS ---
EXAMINATION: CT brain wo con INDICATION: Altered mental status COMPARISON: 05/10/2020 TECHNIQUE: Standard unenhanced head CT. The dose-length product (DLP) was 832.33 mGy-cm. The mA was a djusted according to patient size. Iterative reconstruction technique was employed. FINDINGS: There is no acute intraparenchymal hemorrhage. No evidence of mass lesion. No evidence of a cute infarction. There is mild periventricular and subcortical hypodensity probably related to small vessel ischemic disease. There is mild prominence of the sulci and ventricles related to cerebral atr ophy. Intracranial calcified cerebral atherosclerosis is noted. There are no extra-axial collections. There is no mass effect or midline shift. Changes in the globes are likely from ocular lens surgery. The visualized sinuses and mastoid air cells are well aerated. IMPRESSION: 1. No acute intracranial abnormality. 2. Age related findings. Reviewed, dictated and finalized at location B.
[2022-06-14 09:44] VITALS: BP 127/72; PULSE 87; RESP 18; TEMP 36.4; O2SAT 97
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
[2022-06-14 10:18] LABS: Basophils Absolute Auto 0.1 K/mm3 (0.0-0.1); Basophils Percent Auto 0.5 % (0.2-1.2); Eosinophils Absolute Auto 0.3 K/mm3 (0-0.3); Eosinophils Percent Auto 2.9 % (0-4.4); Hematocrit 37.7 % (42.0-52.0); Hemoglobin 11.9 g/dL (14.0-18.0); Immature Granulocyte Absolute 0.02 K/mm3 (0.00-0.031); Immature Granulocyte Percent A 0.2 % (0-0.5); Lymphocytes Percent Auto 24.7 % (18.3-44.2); Mean Corpuscular HGB Conc 31.6 g/dl (32-36); Mean Corpuscular Hemoglobin 25.9 pg (26-34); Mean Platelet Volume 8.7 fl (7.4-10.4); Monocytes Absolute Auto 0.7 K/mm3 (0.1-0.6); Monocytes Percent Auto 6.9 % (2.6-8.5); Neutrophils Absolute Auto 6.3 K/mm3 (1.3-6.7); Neutrophils Percent Auto 64.8 % (45.5-73.1); Platelet Count Result 198 k/mm3 (150-375); Red Cell Distribution Width 18.3 % (11.5-14.5); White Blood Count 9.7 K/mm3 (4.5-10.0)
[2022-06-14 10:32] LABS: Alanine Aminotransferase 24 U/L (6-50); Albumin Level 4.3 g/dL (3.5-5.1); Alkaline Phosphatase 74 U/L (38-126); Anion Gap 14 mmol/L (8-16); Aspartate Amino Transferase 29 U/L (17-59); Bilirubin,Total 0.7 mg/dL (0.2-1.3); Blood Urea Nitrogen 27 mg/dL (9-20); Calcium 9.4 mg/dL (8.4-10.2); Carbon Dioxide 21 mmol/L (22-30); Chloride 103 mmol/L (98-107); Estimated CRCL calculation 54 ml/min; Estimated Glomerular Filt Rate 54; Glucose 125 mg/dL (65-110); Potassium 4.4 mmol/L (3.4-5.0); Sodium 138 mmol/L (137-145)
[2022-06-14 11:04] VITALS: BP 135/76; PULSE 93; RESP 18; O2SAT 96
[2022-06-14 11:16] LABS: Appearance Urine Clear (Clear); Bilirubin Urine Negative (Negative); Blood Urine Negative (Negative); Color Urine Yellow (Yellow); Glucose Urine UA Negative (Negative); Ketones Urine Negative (Negative); Leukocyte Esterase Ur Trace LEU/UL (Negative); Nitrate Urine Negative (Negative); Protein Urine Negative (Negative); Urobilinogen Urine 0.2 mg/dL (<2.0); pH Urine 6.5 (5.0-9.0)
[2022-06-14 11:19] LABS: Add Urine Microscopic? NO
[2022-06-14 11:24] LABS: Bacteria Urine Trace /hpf; Mucus Urine Rare /lpf; RBC Urine 0-2 /hpf (0-2); Squamous Epithelial Cell Urine Rare /hpf (Few); WBC Urine 0-3 /hpf
[2022-06-14 14:44] VITALS: BP 144/84; PULSE 79; RESP 18; O2SAT 96
[2022-06-14 16:24] LABS: NT Pro B Type Natriuretic Pept 148 pg/mL (5-100); Troponin I 0.013 ng/mL (0.000-0.034)
--- NOTE | 2022-06-14 18:15 | PC.NURSE ---
Pt attempting to get out of bed at this time. Pt states Im ready to go back to [place] Pt redirected back to bed
[2022-06-14 18:16] LABS: Acetaminophen < 10 ug/mL (10-30); Ethanol < 10 mg/dL (<10); Salicylate < 1.0 mg/dL (2-20)
--- NOTE | 2022-06-14 18:30 | PC.NURSE ---
Pt attempting again to get out of bed. Pt becoming combative when trying to get back in bed. ÁNGEL Pereyra notified and VORB for 0.5 mg IM ativan
[2022-06-14] MEDS: LORazepam INJ (*CRX) 2 MG/ML VIAL 0.5 MG IM (18:39)
--- NOTE | 2022-06-14 18:40 | PC.NURSE ---
Pt continues to try and get out of bed, swinging and kicking at staff. VORB for soft restraints
[2022-06-14 18:48] VITALS: BP 171/94; PULSE 76; RESP 18; O2SAT 98
[2022-06-14 18:55] LABS: Thyroid Stimulating Hormone 0.579 uIU/mL (0.465-4.680)
--- NOTE | 2022-06-14 19:09 | PCCCNOTE ---
Addendum entered by Kathrin Guaman RN 06/15/22 17:46: Late entry: Addition: When speaking with Tamanna on original call, she did not voice any concerns with the intermediate. She confirmed what Mari had stated that she goes by for surprise visits 2-3 times per week including last Saturdays visit where he was sitting with other residents, smiling and laughing. j Original Note: Late entry: Requested to speak with patient about concerns with intermediate. Met with patient he was hitting head of stretcher, career development coordinator touched his arm and he stopped hitting stretcher. Says that he is confused and could not explain what happened. Asked if I should call his Daughter Mari and he said to call Tamanna his daughter in law. Called to Daughter Mair as showing primary contact, she states that he was diagnosed with dementia by MRI and moved into [facility] in January/February 2022. They have not had any concerns with the facility and the patient's daughter in law Tamanna goes to the facility about 2-3 times per week and often pop up surprise visits and the most recent one on Tuesday. Patient was laughing and visiting with other residents. She encourages career development coordinator to call Tamanna. Called to Tamanna, and reports that he does get confused when he gets a UTI but he has never been verbal or physically combative before. Advises about a psychiatric evaluation. Tamanna called [facility] and then called career development coordinator back discussed geropsych at [facility]. Tamanna would like to speak with provider. Advised that provider will call her back after we close our call. ÁNGEL Flowers spoke with Tamanna and will pursue geropsych bed placement. Certificate and Involuntary Petition completed. Spoke with [facility] intake at [phone], requests referral to be fax'd.
--- NOTE | 2022-06-14 19:14 | ECG_ITS ---
Measurements Intervals [place] Rate: 83 P: 24 MS: 210 QRS: -48 QRSD: 98 T: -4 QT: 377 QTc: 443 Interpretive Statements SINUS RHYTHM WITH FIRST DEGREE AV BLOCK LOW QRS VOLTAGE IN PRECORDIAL LEADS INCOMPLETE RIGHT BUNDLE BRANCH BLOCK POOR R WAVE PROGRESSION, ANTERIOR LEADS INFERIOR INFARCT, AGE INDETERMINATE BASELINE ARTIFACT- II, III, AVF ABNORMAL ECG Electronically Signed On 06-15-2022 7:11:57 CDT by George Thompson D.O.
[2022-06-14 19:25] LABS: SARS-CoV-2 RNA PCR Negative
[2022-06-14 19:27] LABS: Amphetamine Screen Urine Negative (Negative); Barbiturate Screen Urine Positive (Negative); Benzodiazepines Screen Urine Positive (Negative); Cannabinoid Screen Urine Negative (Negative); Cocaine Screen Urine Negative (Negative); Methadone Screen Urine Negative (Negative); Opiate Screen Urine Negative (Negative); Phencyclidine Screen Urine Negative (Negative)
[2022-06-14] MEDS: HALOPERIDOL LACTATE 5 MG/ML VIAL IM (19:30)
--- NOTE | 2022-06-14 19:47 | PC.NURSE ---
193-BESSIE Drummond from [facility] called to notify that there are no beds available at this time but will place pt on a waiting list. needs drug screen and COVID test results, along with first page of Involuntary form needs filled out properly with admission location left blank at this time.
--- NOTE | 2022-06-14 20:22 | PC.NURSE ---
BESSIE Drummond from [facility] returned call to notify that pt has been accepted at this time, but will be waiting on bed placement tomorrow morning/afternoon when one becomes available.
[2022-06-15 06:55] VITALS: BP 171/84; PULSE 102; RESP 18; TEMP 36.5; O2SAT 100
--- NOTE | 2022-06-15 07:32 | PC.NURSE ---
Pt breakfast tray ordered.
--- NOTE | 2022-06-15 08:03 | PC.NURSE ---
Pt's breakfast delivered. Pt currently eating breakfast.
--- NOTE | 2022-06-15 09:08 | PC.NURSE ---
Pt finished 3/4 of breakfast tray (banana, toast, mixed fruit, yogurt). No liquid intake.
[2022-06-15] MEDS: ALPRAZolam (*CRX) 0.5 MG TABLET 1 MG PO ×2 (09:17→21:58)
--- NOTE | 2022-06-15 09:39 | PC.NURSE ---
Spoke with Lalitha from [facility]. Provided update pt to be involuntary admitted [facility].
--- NOTE | 2022-06-15 09:56 | PCCCNOTE ---
Called to [facility], patient is currently 2nd on the waitlist, do not have a specific # of discharges as psychiatrists are making rounds throughout the day and discharging as appropriate. They will call us once a bed is available. Called to [facility], she states that based on his medical conditions and history that she will need to talk with director and call me back. Called to [facility] intake in [place], they took details and request a facesheet to be fax'd to [phone]. Fax'd as requested. Called to patient's daughter in law Tamanna, provided update, explained that he did have additional episode of combative episode with staff and she states that she isn't surprised that she really feels that something psychological is going on as she has never see him like this before. States that his sister's have/had bipolar diagnosis. Explained that since he is involuntary that we will be pursuing all options to get into a [facility] bed. Provided update about [facility] wait list, [facility] and [facility]. Patient does not have a medical POA, but she is the main contact for the facility and was present yesterday upon admission to ER. She will update patient's daughter Mari. Return call received from [facility] that based on his medical conditions that they are not able to accept a referral. Return call received from [facility] and they can not accept any involuntary admissions at this time. Called to [facility] spoke with Tyra, provided update. Provided update to bedside ALICIA Soto and patient biller Gabi.
--- NOTE | 2022-06-15 10:12 | PCCCNOTE ---
Called to Ceci at [phone] [facility], she requested verbal report for screening. Information provided per records, Bibiana states that per conditions/acuity that they would not be able to accept a referral on this patient.
--- NOTE | 2022-06-15 10:26 | PCCCNOTE ---
Addendum entered by Kathrin Guaman RN 06/15/22 12:14: Received a call back from Teo at [facility] and he states per his doctor they do not have the capacity to accept the patient. Addendum entered by Kathrin Guaman RN 06/15/22 10:43: Called to [facility]- and received a call back from Teo in intake, provided verbal information as requested, he states that he will speak with his doctor and will call me back. Original Note: Called to [facility] psychiatric unit closed at the first of the year. Called to [facility]- they do not take any involuntary admissions including dementia without a medical POA. [facility] [place] - they do not have any geropsych beds.
--- NOTE | 2022-06-15 13:19 | PCCCNOTE ---
Called to [facility] and nithin Seo in intake, per Gabbi there have not been any discharges yet.
[2022-06-15 13:30] VITALS: BP 155/88; PULSE 59; RESP 18; O2SAT 95
[2022-06-15] MEDS: ACETAMINOPHEN 325 MG TABLET 650 MG PO (13:39)
--- NOTE | 2022-06-15 16:23 | PCCCNOTE ---
Called to [facility] at [phone] and spoke with Malgorzata, she states that there weren't any discharged on geropsych today so he is still #2 on the waitlist. Confirmed with Malgorzata that they have the phone number for the ER and she confirms it.
--- NOTE | 2022-06-15 16:35 | PCCCNOTE ---
Phone call to [facility] at [phone], [facility], signs and displays sales representative states that they do not have any [facility] beds today, but advised to call back tomorrow.
--- NOTE | 2022-06-15 17:41 | PCCCNOTE ---
Called to [facility] nithin Norton, agrees to look at referral, referral fax'd as requested to [phone]. Called to patient's daughter in law and notified and update provided about facility declinations, continued no bed at [facility] and faxing facilities near [facility], explained the involuntary certificate and petition and it will re-examined around 7pm tonight. Tamanna verbalizes understanding.
--- NOTE | 2022-06-15 18:18 | PCCCNOTE ---
Called to [facility] RN Camila, provided update that MD certification and involuntary petition will be due around 7pm jed. She speaks to DON and calls aged or disabled care worker back to advise that they patient has to be 24 hours without restraints to return back to facility and they do not accept admissions in the middle of night for safety of patients.
--- NOTE | 2022-06-15 19:13 | PCCCNOTE ---
Addendum entered by Kathrin Guaman RN 06/15/22 19:26: Called to daughter in law Nolen and notified that his involuntary petition has and the plan will be for him to stay with us through the night as [facility] requires 24 hours restraint free before he can return. Explained that if his condition changes and another involuntary petition and MD certification is placed during the night then critical care clinical nurse specialist will continue to work on geropsych placement in the AM but if he remains as he is then will return to [facility] in the AM. Tamanna asked if he was notified that he would return in the AM and advised to here that this critical care clinical nurse specialist specifically told him and he remained calm. Daughter in Lin[place] verbalizes understanding. Original Note: Involuntary petition , discussed with ED physician Dr. Rivas and Dr. Hanks. Per nursing notes, discussion and intermittent observation patient has been calm and cooperative all day. Met with patient alert and oriented x3 discussed that he would be with us tonight and with a plan to return to facility in the AM. Patient remained calm during discussion and notification of return to facility in AM. Patient is sitting in his chair beside stretcher with call light in reach and watching TV program. Requesting dinner. Update provided to bedside RN and chargemaster analyst that his involuntary hold has , and if he does not require restraints tonight he can return to his custodial ([facility]) tomorrow morning.
[2022-06-15 19:43] VITALS: BP 179/80; PULSE 92; RESP 16; O2SAT 97
[2022-06-15 21:56] VITALS: PULSE 80
[2022-06-15] MEDS: carvediloL 6.25 MG TABLET PO (21:56)
[2022-06-15] MEDS: metFORMIN HCL 500 MG TABLET PO (21:56)
[2022-06-15] MEDS: LOSARTAN POTASSIUM 50 MG TABLET PO (21:57)
[2022-06-15 22:31] VITALS: BP 174/89; PULSE 100; RESP 16; O2SAT 95
[2022-06-16] MEDS: ACETAMINOPHEN 500 MG TABLET 1000 MG PO (02:22)
[2022-06-16 05:50] VITALS: BP 131/72; PULSE 82; RESP 16; O2SAT 97
--- NOTE | 2022-06-16 06:26 | PC.NURSE ---
patient report tried to call. RN at [facility] states, we will not take this patient back at this time until you discuss it with our DON because this facility is not willing to take him back Then this nurse hung up the phone on this RN\
--- NOTE | 2022-06-16 07:04 | PC.NURSE ---
Spoke with Sweta in Care Coordination - about situation of [facility] refusing to take pt back after the arrangements of pt going back after he has been out of restraints for 24 hours. He has been out of restraints for 30 hours and has been cooperative with nursing staff.
--- NOTE | 2022-06-16 07:12 | PC.NURSE ---
Addendum entered by Pat Conley RN 06/16/22 07:25: patient had headache. no orders received after Tylenol Original Note: This RN asked EDP Latonya for medicine for this patients headache several times since the tylenol did not work and she stated, I do not care its not my problem the old man doesnt need anything else
--- NOTE | 2022-06-16 07:13 | PCCCNOTE ---
CC called [facility], spoke with Pretty, whom states that she does not approve for patient to return. CC requested a call from the D.O.N. Pretty states that the D.O.N. will be in the building in a few minutes and return my phone call. CC was under the impression that as long as patient was restraint free for 24 hours, and was discharge during the morning hours, transfer was accepted. Pretty was made aware of this prior arrangement however was still not willing to accept report at this time. CC will continue to follow.
--- NOTE | 2022-06-16 08:28 | PCCCNOTE ---
Spoke with Siomara Mary from [facility]. Tyra stated that she needed updated MD notes, CC has attempted 6 times to fax, called facility to confirm fax # with Linda. CC will continue to fax to the same #. Tyra also stated that it was the senior center director that stated [facility] was not able to accept patient. CC will continue to follow.
[2022-06-16 08:40] VITALS: BP 168/85; PULSE 90; RESP 16; O2SAT 96
[2022-06-16] MEDS: ACETAMINOPHEN 325 MG TABLET 650 MG PO (08:54)
--- NOTE | 2022-06-16 10:53 | PCCCNOTE ---
Spoke with Tyra whom approved patient to return to [facility]. CC informed here that the ER nurse willbe calling with report and arranging transportation. CC will continue to follow for any needs that arise.
== END 2022-06-16 11:17 ==
PROVIDERS: Physician Assistant; Emergency Provider Emergency Medicine; PCP Internal Medicine
DX: R45.1 Restlessness and agitation (principal); F03.90 Unspecified dementia, unspecified severity, without behavioral disturbance, psychotic disturbance, mood disturbance, and anxiety; Z20.822 Contact with and (suspected) exposure to COVID-19; N40.0 Benign prostatic hyperplasia without lower urinary tract symptoms; E11.9 Type 2 diabetes mellitus without complications; I50.9 Heart failure, unspecified; I25.10 Atherosclerotic heart disease of native coronary artery without angina pectoris; I11.0 Hypertensive heart disease with heart failure; F32.A Depression, unspecified; F41.9 Anxiety disorder, unspecified; Z95.1 Presence of aortocoronary bypass graft; Z98.49 Cataract extraction status, unspecified eye; Z95.5 Presence of coronary angioplasty implant and graft; Z79.82 Long term (current) use of aspirin; Z79.84 Long term (current) use of oral hypoglycemic drugs; Z79.899 Other long term (current) drug therapy; I51.7 Cardiomegaly; I44.0 Atrioventricular block, first degree; I45.10 Unspecified right bundle-branch block; R94.31 Abnormal electrocardiogram [ECG] [EKG]; K74.60 Unspecified cirrhosis of liver; N20.0 Calculus of kidney; R93.3 Abnormal findings on diagnostic imaging of other parts of digestive tract
CPT/HCPCS: 36415; 51701; 70450; 71045; 74177; 80053; 80307; 81003; 83880; 84443; 84484; 85025; 93005; 96372; 99284; A9270; C9803; J1630; J2060; Q9967; U0003; U0005

== ENCOUNTER 2022-07-09 09:39 | Outpatient (CLI) | payer MEDICARE, MEDICAID, SELFPAY | END 2022-07-09 09:40 | disposition home or self-care (01) | LOC: ANHAUDIO 09:41 | PROVIDERS: PCP Internal Medicine; Referring Provider Internal Medicine; Visit Provider Internal Medicine | DX: H90.3 Sensorineural hearing loss, bilateral (principal) | CPT/HCPCS: 92553; 92555; 92567 ==

== ENCOUNTER 2022-09-13 09:53 | Emergency (ER) | payer MEDICARE, MEDICAID, SELFPAY ==
--- NOTE | ~2022-09-13 | XR_ITS ---
EXAMINATION: XR chest 1V portable DATE: 09/13/2022 10:12 INDICATION: Chest pain and shortness of breath TECHNIQUE: frontal view of the chest was obtained. COMPARISON: Chest radiograph dated 06/14/2022 and 09/03/2006 FINDINGS: Chronic large calcified nodule and calcified mediastinal lymph nodes at the anterior right midlung zo ne consistent with old granulomatous disease. Airspace opacities in the left mid and lower lung zones which could represent atelectasis, pneumonia or asymmetric mild pulmonary edema. More thin linear op acities in the right mid and lower lung zone and favor atelectasis over pneumonia. No pneumothorax or pleural effusion. Mild cardiomegaly. Median sternotomy wires and mediastinal surgical clips are seen , likely from prior coronary artery bypass grafting. IMPRESSION: 1. Opacities in the left mid and lower lung zone which could represent atelectasis, pneumonia, mild p ulmonary edema or some combination thereof. 2. Mild cardiomegaly. Reviewed, dictated and finalized at location A. IMPRESSION: 1. Opacities in the left mid and lower lung zone which could represent atelecta sis, pneumonia, mild pulmonary edema or some combination thereof. 2. Mild cardiomegaly.
[2022-09-13 09:51] VITALS: BP 193/90; PULSE 84; RESP 36; TEMP 36.5; O2SAT 100
--- NOTE | 2022-09-13 10:00 | ECG_ITS ---
Measurements Intervals [place] Rate: 84 P: -3 [place]: 177 QRS: -48 QRSD: 95 T: -8 QT: 378 QTc: 448 Interpretive Statements SINUS RHYTHM BASELINE ARTIFACT INCOMPLETE RIGHT BUNDLE BRANCH BLOCK INFERIOR INFARCTION, AGE INDETERMINATE LEFT ANTERIOR FASCICULAR BLOCK [QRS AXIS <= -45, QR IN I, RS IN II] POOR R-WAVE PROGRESSION ABNORMAL ECG COMPARED TO ECG 06/14/2022 20:54:58 LEFT ANTERIOR FASCICULAR BLOCK NOW PRESENT Electronically Signed On 09-13-2022 16:12:25 CDT by Franck Hoskins M.D.
[2022-09-13 10:02] VITALS: O2SAT 100
[2022-09-13 10:15] LABS: Basophils Absolute Auto 0.1 K/mm3 (0.0-0.1); Basophils Percent Auto 0.6 % (0.2-1.2); Eosinophils Absolute Auto 0.3 K/mm3 (0-0.3); Eosinophils Percent Auto 3.3 % (0-4.4); Hematocrit 37.7 % (42.0-52.0); Hemoglobin 12.1 g/dL (14.0-18.0); Immature Granulocyte Absolute 0.03 K/mm3 (0.00-0.031); Immature Granulocyte Percent A 0.3 % (0-0.5); Lymphocytes Absolute Auto 2.79 K/mm3 (0.9-3.2); Lymphocytes Percent Auto 31.8 % (18.3-44.2); Mean Corpuscular HGB Conc 32.1 g/dl (32-36); Mean Corpuscular Hemoglobin 27.2 pg (26-34); Mean Corpuscular Volume 84.7 fl (80-100); Mean Platelet Volume 8.6 fl (7.4-10.4); Monocytes Absolute Auto 0.8 K/mm3 (0.1-0.6); Monocytes Percent Auto 9.5 % (2.6-8.5); Neutrophils Absolute Auto 4.8 K/mm3 (1.3-6.7); Neutrophils Percent Auto 54.5 % (45.5-73.1); Platelet Count Result 201 k/mm3 (150-375); Red Blood Count 4.45 M/mm3 (4.6-6.20); Red Cell Distribution Width 18.2 % (11.5-14.5); White Blood Count 8.8 K/mm3 (4.5-10.0)
[2022-09-13 10:24] VITALS: PULSE 78
[2022-09-13 10:29] LABS: Prothrombin Time 12.9 Seconds (11.1-14.7)
[2022-09-13 10:30] LABS: Partial Thromboplastin Time 32.1 SECONDS (22.3-36.8)
[2022-09-13 10:31] LABS: Add Urine Microscopic? YES; Appearance Urine Clear (Clear); Bilirubin Urine Negative (Negative); Blood Urine Negative (Negative); Color Urine Colorless (Yellow); Glucose Urine UA Negative (Negative); Ketones Urine Negative (Negative); Leukocyte Esterase Ur Trace LEU/UL (Negative); Nitrate Urine Negative (Negative); Protein Urine Negative (Negative); RBC Urine 0-2 /hpf (0-2); Squamous Epithelial Cell Urine Rare /hpf (Few); Urobilinogen Urine Negative mg/dL (<2.0); WBC Urine 0-3 /hpf
[2022-09-13 10:38] LABS: Alanine Aminotransferase 28 U/L (6-50); Albumin Level 4.3 g/dL (3.5-5.1); Alkaline Phosphatase 88 U/L (38-126); Anion Gap 16 mmol/L (8-16); Aspartate Amino Transferase 36 U/L (17-59); Bilirubin,Total 0.5 mg/dL (0.2-1.3); Blood Urea Nitrogen 13 mg/dL (9-20); Calcium 9.8 mg/dL (8.4-10.2); Carbon Dioxide 23 mmol/L (22-30); Chloride 100 mmol/L (98-107); Estimated CRCL calculation 73 ml/min; Estimated Glomerular Filt Rate > 60; Glucose 133 mg/dL (65-110); Lipase 85 U/L (23-300); Sodium 139 mmol/L (137-145)
[2022-09-13] MEDS: LORazepam INJ (*CRX) 2 MG/ML VIAL 0.5 MG IV PUSH (10:39)
[2022-09-13 10:41] VITALS: BP 182/85; PULSE 78; RESP 24; O2SAT 96
[2022-09-13 10:49] LABS: Troponin I < 0.012 ng/mL (0.000-0.034)
[2022-09-13 10:50] LABS: NT Pro B Type Natriuretic Pept 530 pg/mL (5-100)
[2022-09-13 10:53] LABS: Specific Grav Ur 1.003 (1.001-1.035)
[2022-09-13 11:58] VITALS: BP 198/91; PULSE 85; RESP 19; O2SAT 96
--- NOTE | 2022-09-13 13:14 | PC.NURSE ---
Tamanna (family member) given update on pt status per pt permission. [phone]
[2022-09-13 13:23] VITALS: BP 155/83; PULSE 81; RESP 18; O2SAT 99
[2022-09-13 13:39] LABS: Troponin I < 0.012 ng/mL (0.000-0.034)
--- NOTE | 2022-09-13 18:22 | ED.CHESTPAIN ---
HPI - Chest Pain General Chief Complaint: Chest Pain Stated Complaint: cp -intermittent - current no pain History of Present Illness HPI narrative: 77-year-old male who tells me that he is here because he is very upset that the 3 men that live in his room have been leaving poop and pee all over the toilet. To me he is denying any chest pain or difficulty breathing though apparently to [facility] he reported chest pain. Related Data Home Medications Medication Instructions Recorded Confirmed alprazolam 1 mg tablet 1 mg PO TID 05/10/20 10/10/20 metformin 500 mg tablet 500 mg PO DAILY 05/10/20 10/10/20 mirabegron 50 mg tablet,extended 50 mg PO DAILY 05/10/20 10/10/20 release 24 hr (Myrbetriq) ranolazine 500 mg tablet,extended 500 mg PO Q12H 05/10/20 10/10/20 release,12 hr (Ranexa) simvastatin 40 mg tablet 40 mg PO DAILY 05/10/20 10/10/20 tamsulosin 0.4 mg capsule 0.4 mg PO DAILY 05/10/20 10/10/20 carvedilol 6.25 mg tablet 6.25 mg PO BID 10/06/20 10/10/20 ergocalciferol (vitamin D2) 1,250 50,000 unit PO 2XW 10/06/20 10/10/20 mcg (50,000 unit) capsule finasteride 5 mg tablet 5 mg PO DAILY 10/06/20 10/10/20 losartan 50 mg tablet 50 mg PO DAILY 10/06/20 10/10/20 pantoprazole 40 mg tablet,delayed 40 mg PO DAILY 10/06/20 10/10/20 release potassium citrate 10 mEq (1,080 40 meq PO DAILY 10/06/20 10/10/20 mg) tablet,extended release pregabalin 75 mg capsule (Lyrica) 75 mg PO BID 10/06/20 10/10/20 primidone 50 mg tablet 50 mg PO BID 10/06/20 10/10/20 sertraline 50 mg tablet 50 mg PO BID 10/06/20 10/10/20 vitamin B complex (B 1 tablet PO DAILY 10/06/20 10/10/20 Complex-Vitamin B12 tablet) aspirin 81 mg tablet,delayed 81 mg PO DAILY 06/14/22 06/14/22 release Allergies Allergy/AdvReac Type Severity Reaction Status Date / Time Sulfa (Sulfonamide Allergy Unknown Verified 09/13/22 10:26 Antibiotics) Review of Systems Review of Systems: CONST: No fever. HEENT: No sore throat C/V: No chest pain RESP: No cough GI: No abdominal pain : No dysuria. M/S: No joint pain. SKIN: No rash. NEURO: [No headache or focal numbness or weakness] PSYCH: Anxiety and anger PMFSH Past Medical History Medical History Anxiety BPH (benign prostatic hyperplasia) Cirrhosis Depression Diabetes type 2, controlled History of CHF (congestive heart failure) History of coronary artery disease Hypercholesterolemia Hypertension Surgical History Surgical History History of coronary artery stent placement Hx of CABG 20 years ago Hx of cataract surgery Social History Social History Smoking status: Never smoker Alcohol intake: former 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 Substance use: unknown Additional living arrangements comments: ALONE, CAREGIVER 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 Spiritual care concerns: No Exam Narrative: EXAMINATION OF ORGAN SYSTEMS/BODY AREAS: Constitutional: Vital signs per nursing GENERAL: Patient appears quite upset HEAD: Normal with no signs of head trauma. EYES: EOMI, conjunctiva normal ENT: Hearing grossly intact LUNGS: Tachypneic HEART: [Regular rate and rhythm] ABD: [Soft], [nontender to palpation] EXT: Normal range of motion SKIN: [No rashes or lesions.] NEURO: [Alert. No gross focal sensory or strength deficits.] PSYCH: Anxious affect Course Vital Signs Vital signs: Vital Signs Temperature 97.7 F 09/13/22 09:51 Pulse Rate 84 09/13/22 09:51 Respiratory Rate 36 H 09/13/22 09:51 Blood Pressure 193/90 H 09/13/22 09:51 Pulse Oximetry 100 09/13/22 09:51 Oxygen Delivery Room Air 09/13/22 09:51 Temperature 97.7 F 09/13/22 09:51 Pulse Rate 81 09/13/22 13:23 Respiratory Rate 18 09/13/22 13:23 Blood Pressure 155/83 H 09/13/22 13:23 Pulse Oximetry 99 09/13/22 13:23 Oxygen Delivery Room Air
== END 2022-09-13 13:28 ==
PROVIDERS: Emergency Provider Emergency Medicine
DX: R06.00 Dyspnea, unspecified (principal); E11.9 Type 2 diabetes mellitus without complications; I50.9 Heart failure, unspecified; I11.0 Hypertensive heart disease with heart failure; I25.10 Atherosclerotic heart disease of native coronary artery without angina pectoris; E78.00 Pure hypercholesterolemia, unspecified; K74.60 Unspecified cirrhosis of liver; N40.0 Benign prostatic hyperplasia without lower urinary tract symptoms; F32.A Depression, unspecified; F41.9 Anxiety disorder, unspecified; Z79.84 Long term (current) use of oral hypoglycemic drugs; Z79.82 Long term (current) use of aspirin; Z95.5 Presence of coronary angioplasty implant and graft; Z95.1 Presence of aortocoronary bypass graft; Z98.49 Cataract extraction status, unspecified eye; I45.2 Bifascicular block; R94.31 Abnormal electrocardiogram [ECG] [EKG]
CPT/HCPCS: 36415; 51701; 71045; 80053; 81001; 83690; 83880; 84484; 85025; 85610; 85730; 93005; 96374; 99284; J2060

== ENCOUNTER 2022-10-11 15:03 | Emergency (ER) | payer MEDICARE, MEDICAID, SELFPAY ==
[2022-10-11 15:20] VITALS: BP 162/69; PULSE 68; RESP 16; TEMP 36.8; O2SAT 100
--- NOTE | 2022-10-11 15:57 | ED.GENADULT ---
HPI - General Adult General Chief complaint: Allergic Reaction Stated complaint: allergic reaction to vancomycin/ itching/ hearing Time Seen by Provider: 10/11/22 15:35 History of Present Illness HPI narrative: 77-year-old male [facility]. Patient is hard of hearing and while difficult to communicate with has informed me that he does not know why he is here. I have called the prison and spoken to his nurse Jennifer. It seems patient was diagnosed with osteomyelitis in the right great toe. He had a PICC line placed and has been receiving IV antibiotics at their facility. Patient had what staff feel is an allergic reaction to vancomycin and his antibiotic was switched to linezolid. They were concerned he had a second allergic reaction to the linezolid. Jennifer has informed me that they are unsure what antibiotic to give from now on so they sent him to our emergency department for evaluation. Patient is not currently having any sort of allergic reaction. This is not a new diabetic foot ulcer. His vital signs are stable. Related Data Home Medications Medication Instructions Recorded Confirmed alprazolam 1 mg tablet 1 mg PO TID 05/10/20 10/10/20 metformin 500 mg tablet 500 mg PO DAILY 05/10/20 10/10/20 mirabegron 50 mg tablet,extended 50 mg PO DAILY 05/10/20 10/10/20 release 24 hr (Myrbetriq) ranolazine 500 mg tablet,extended 500 mg PO Q12H 05/10/20 10/10/20 release,12 hr (Ranexa) simvastatin 40 mg tablet 40 mg PO DAILY 05/10/20 10/10/20 tamsulosin 0.4 mg capsule 0.4 mg PO DAILY 05/10/20 10/10/20 carvedilol 6.25 mg tablet 6.25 mg PO BID 10/06/20 10/10/20 ergocalciferol (vitamin D2) 1,250 50,000 unit PO 2XW 10/06/20 10/10/20 mcg (50,000 unit) capsule finasteride 5 mg tablet 5 mg PO DAILY 10/06/20 10/10/20 losartan 50 mg tablet 50 mg PO DAILY 10/06/20 10/10/20 pantoprazole 40 mg tablet,delayed 40 mg PO DAILY 10/06/20 10/10/20 release potassium citrate 10 mEq (1,080 40 meq PO DAILY 10/06/20 10/10/20 mg) tablet,extended release pregabalin 75 mg capsule (Lyrica) 75 mg PO BID 10/06/20 10/10/20 primidone 50 mg tablet 50 mg PO BID 10/06/20 10/10/20 sertraline 50 mg tablet 50 mg PO BID 10/06/20 10/10/20 vitamin B complex (B 1 tablet PO DAILY 10/06/20 10/10/20 Complex-Vitamin B12 tablet) aspirin 81 mg tablet,delayed 81 mg PO DAILY 06/14/22 06/14/22 release Allergies Allergy/AdvReac Type Severity Reaction Status Date / Time Sulfa (Sulfonamide Allergy Unknown Verified 09/13/22 10:26 Antibiotics) Review of Systems Review of Systems: CONSTITUTIONAL: Denies fever, chills, or sweats. EYES: Denies visual changes, redness, or discharge. ENT: Denies rhinorrhea, congestion, sore throat, or otalgia. CARDIOVASCULAR: Denies chest pain, palpitations, or edema. RESPIRATORY: Denies cough or dyspnea. GASTROINTESTINAL: Denies abdominal pain, nausea, vomiting, or diarrhea. GENITOURINARY: Denies dysuria or hematuria. SKIN: Denies rash or itching. MUSCULOSKELETAL: Denies back pain, joint pain, or myalgia. NEUROLOGIC: Denies headache, numbness, or weakness. PSYCHIATRIC: Denies anxiety or depression. [facility] Past Medical History Medical History Anxiety BPH (benign prostatic hyperplasia) Cirrhosis Depression Diabetes type 2, controlled History of CHF (congestive heart failure) History of coronary artery disease Hypercholesterolemia Hypertension Surgical History Surgical History History of coronary artery stent placement Hx of CABG 20 years ago Hx of cataract surgery Social History Social History Smoking status: Never smoker Alcohol intake: former 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 Substance use: unknown Additional living arrangements comments: ALONE, CAREGIVER 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 Spiritual care concerns: No Exam Narr
== END 2022-10-11 18:10 ==
PROVIDERS: Emergency Provider Emergency Medicine
DX: E11.69 Type 2 diabetes mellitus with other specified complication (principal); M86.9 Osteomyelitis, unspecified; E11.621 Type 2 diabetes mellitus with foot ulcer; L97.519 Non-pressure chronic ulcer of other part of right foot with unspecified severity; K74.60 Unspecified cirrhosis of liver; I50.9 Heart failure, unspecified; I25.10 Atherosclerotic heart disease of native coronary artery without angina pectoris; I11.0 Hypertensive heart disease with heart failure; E78.00 Pure hypercholesterolemia, unspecified; N40.0 Benign prostatic hyperplasia without lower urinary tract symptoms; Z95.5 Presence of coronary angioplasty implant and graft; Z95.1 Presence of aortocoronary bypass graft; Z98.49 Cataract extraction status, unspecified eye; Z79.84 Long term (current) use of oral hypoglycemic drugs
CPT/HCPCS: 99281

== ENCOUNTER 2022-10-21 22:29 | Emergency (ER) | payer MEDICARE, MEDICAID, SELFPAY ==
--- NOTE | ~2022-10-21 | CT_ITS ---
EXAMINATION: CT chst ab pel thor lum wo/w DATE: 10/22/2022 01:51 INDICATION: Chest and abdominal pain after fall TECHNIQUE: Transaxial computed tomographic images of the chest, abdomen, pelvis, thoracic and lumbar spine were obtained after the administration of 100 cc of Omnipaque 350 intravenous contrast. The dos e-length product (DLP) was 1866.01 mGy-cm. Automated exposure control and iterative reconstruction te chnique were employed. COMPARISON: None FINDINGS: CHEST CT: Cardiomegaly is noted. There is calcified coronary artery atherosclerosis. There is smooth interlobul ar septal thickening throughout the lungs. There are bilateral perihilar interstitial and airspace op acities. There are also dependent airspace opacities in the lungs. Trace pleural effusions are presen t. There is no pneumothorax. Calcified pulmonary nodules and calcified bilateral hilar and mediastina l lymph nodes are consistent with old granulomatous disease. ABDOMEN/PELVIS CT: There is nodularity of the liver surface. Punctate calcifications in the spleen likely represent heal ed granulomatous disease. Splenomegaly is noted. The gallbladder is surgically absent. The pancreas a nd adrenal glands are normal. The urinary bladder is distended. There is mild to moderate right hydro ureteronephrosis. There is mild left hydronephrosis. There are nonobstructing stones of the kidneys. THORACIC SPINE CT: Vertebral body alignment is normal. There is no fracture. There is mild to moderate loss of intervert ebral disc space height at multiple levels in the thoracic spine. There are bridging osteophytes at m ultiple levels in the spine, consistent with diffuse idiopathic skeletal hyperostosis (DISH). LUMBAR SPINE CT: Vertebral body alignment is normal. There is no fracture. There is mild loss of intervertebral disc s pace height at multiple levels in the lumbar spine. Small degenerative osteophytes project from the a nterior endplates of multiple vertebral bodies. IMPRESSION: 1. Cardiomegaly with pulmonary edema. Superimposed pneumonia and atelectasis are not excluded. 2. No acute abnormality of the abdomen or pelvis. 3. Cirrhosis with splenomegaly. 4. Mild to moderate spondylosis of the thoracic and lumbar spine without acute osseous abnormality. Reviewed, dictated and finalized at location A. ICATIONS PROJECT MANAGER IMPRESSION: 1. Cardiomegaly with pulmonary edema. Superimposed pneumonia and atelectasis ar e not excluded. 2. No acute abnormality of the abdomen or pelvis. 3. Cirrhosis with splenomegaly. 4. Mild to moderate spondylosis of the thoracic and lumbar spine without acute osseous abnormality.
--- NOTE | ~2022-10-21 | CT_ITS ---
EXAMINATION: CT brain wo con INDICATION: Head injury COMPARISON: 06/14/2022 TECHNIQUE: Standard unenhanced head CT. The dose-length product (DLP) was 605.33 mGy-cm. The mA was a djusted according to patient size. Iterative reconstruction technique was employed. FINDINGS: There is no acute intraparenchymal hemorrhage. No evidence of mass lesion. No evidence of a cute infarction. There is mild periventricular and subcortical hypodensity probably related to small vessel ischemic disease. There is mild prominence of the sulci and ventricles related to cerebral atr ophy. Intracranial calcified cerebral atherosclerosis is noted. There are no extra-axial collections. There is no mass effect or midline shift. Changes in the globes are likely from ocular lens surgery. There is mild mucosal thickening of the paranasal sinuses. IMPRESSION: 1. No acute intracranial abnormality. 2. Age related findings. Reviewed, dictated and finalized at location A. CEMENTER
--- NOTE | ~2022-10-21 | CT_ITS ---
EXAMINATION: CT cervical spine wo con DATE: 10/22/2022 01:48 INDICATION: Neck pain, head injury TECHNIQUE: Computed tomography (CT) of the cervical spine was performed without intravenous contrast. The dose-length product (DLP) was 867.60 mGy-cm. Automated exposure control and iterative reconstruc tion technique were employed. COMPARISON: 05/10/2020 FINDINGS: There are changes of anterior fusion from C5 to C7. There is no fracture. The odontoid is i ntact. Again noted are prominent anterior osteophytes and ossification along the anterior longitudina l ligament from C2 through T1. The prevertebral soft tissues are normal. There is multilevel mild to moderate facet and uncovertebral joint osteoarthritis. Cardiomegaly, pulmonary edema, and atelectasis are noted. IMPRESSION: 1. Changes of anterior fusion from C5 through C7 and mild to moderate cervical spondylosis without ac hortencia findings Reviewed, dictated and finalized at location A. HT INSPECTOR IMPRESSION: 1. Changes of anterior fusion from C5 through C7 and mild to moderate cervical spondylosis without acute findings
[2022-10-21 23:23] VITALS: BP 142/76; PULSE 77; RESP 18; TEMP 36.9; O2SAT 97
--- NOTE | 2022-10-21 23:23 | ED.FALL ---
HPI - Fall General Chief Complaint: Fall Stated Complaint: fall from toilet Time Seen by Provider: 10/21/22 22:38 History of Present Illness HPI Narrative: This is a 77-year-old male with past medical history of coronary artery disease, hypertension, diabetes, who is brought in by EMS after a fall at home. Patient states he was attempting to transition from his chair to the toilet, when the chair slipped out from underneath him. He is not sure if he hit his head but denies loss of conscious. He complains of left hip pain, described as dull, moderate, neck and back pain described as dull and mild without radiation. Related Data Home Medications Medication Instructions Recorded Confirmed alprazolam 1 mg tablet 1 mg PO TID 05/10/20 10/10/20 metformin 500 mg tablet 500 mg PO DAILY 05/10/20 10/10/20 mirabegron 50 mg tablet,extended 50 mg PO DAILY 05/10/20 10/10/20 release 24 hr (Myrbetriq) ranolazine 500 mg tablet,extended 500 mg PO Q12H 05/10/20 10/10/20 release,12 hr (Ranexa) simvastatin 40 mg tablet 40 mg PO DAILY 05/10/20 10/10/20 tamsulosin 0.4 mg capsule 0.4 mg PO DAILY 05/10/20 10/10/20 carvedilol 6.25 mg tablet 6.25 mg PO BID 10/06/20 10/10/20 ergocalciferol (vitamin D2) 1,250 50,000 unit PO 2XW 10/06/20 10/10/20 mcg (50,000 unit) capsule finasteride 5 mg tablet 5 mg PO DAILY 10/06/20 10/10/20 losartan 50 mg tablet 50 mg PO DAILY 10/06/20 10/10/20 pantoprazole 40 mg tablet,delayed 40 mg PO DAILY 10/06/20 10/10/20 release potassium citrate 10 mEq (1,080 40 meq PO DAILY 10/06/20 10/10/20 mg) tablet,extended release pregabalin 75 mg capsule (Lyrica) 75 mg PO BID 10/06/20 10/10/20 primidone 50 mg tablet 50 mg PO BID 10/06/20 10/10/20 sertraline 50 mg tablet 50 mg PO BID 10/06/20 10/10/20 vitamin B complex (B 1 tablet PO DAILY 10/06/20 10/10/20 Complex-Vitamin B12 tablet) aspirin 81 mg tablet,delayed 81 mg PO DAILY 06/14/22 06/14/22 release Allergies Allergy/AdvReac Type Severity Reaction Status Date / Time Sulfa (Sulfonamide Allergy Unknown Verified 09/13/22 10:26 Antibiotics) Review of Systems Review of Systems: CONSTITUTIONAL: Denies fever, chills, or sweats. EYES: Denies visual changes, redness, or discharge. ENT: Denies rhinorrhea, congestion, sore throat, or otalgia. CARDIOVASCULAR: Denies chest pain, palpitations, or edema. RESPIRATORY: Denies cough or dyspnea. GASTROINTESTINAL: Denies abdominal pain, nausea, vomiting, or diarrhea. GENITOURINARY: Denies dysuria or hematuria. SKIN: Denies rash or itching. MUSCULOSKELETAL: Left hip pain, neck pain, back pain denies myalgia. NEUROLOGIC: Denies headache, numbness, dizziness, or weakness. PSYCHIATRIC: Denies anxiety or depression. [facility] Past Medical History Medical History Anxiety BPH (benign prostatic hyperplasia) Cirrhosis Depression Diabetes type 2, controlled History of CHF (congestive heart failure) History of coronary artery disease Hypercholesterolemia Hypertension Surgical History Surgical History History of coronary artery stent placement Hx of CABG 20 years ago Hx of cataract surgery Social History Social History Smoking status: Never smoker Alcohol intake: former 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 Substance use: unknown Additional living arrangements comments: ALONE, CAREGIVER 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 Spiritual care concerns: No Exam Narrative: GENERAL: [id number], well-nourished, and in no acute distress. HEAD: Normocephalic, atraumatic. EYES: PERRLA and EOMI. ENT: Nares clear, no rhinorrhea or epistaxis. Mucous membranes moist. Oropharynx without tonsillar hypertrophy exudate or other lesions. NECK: Supple. No adenopathy or masses. No carotid bruits or JVD CHEST: Clear to auscultation. No respiratory distress. No w
[2022-10-22 00:19] LABS: Basophils Absolute Auto 0.1 K/mm3 (0.0-0.1); Basophils Percent Auto 0.7 % (0.2-1.2); Eosinophils Absolute Auto 0.4 K/mm3 (0-0.3); Hematocrit 29.5 % (42.0-52.0); Hemoglobin 9.4 g/dL (14.0-18.0); Immature Granulocyte Absolute 0.04 K/mm3 (0.00-0.031); Immature Granulocyte Percent A 0.4 % (0-0.5); Lymphocytes Absolute Auto 2.34 K/mm3 (0.9-3.2); Lymphocytes Percent Auto 22.5 % (18.3-44.2); Mean Corpuscular HGB Conc 31.9 g/dl (32-36); Mean Corpuscular Hemoglobin 27.7 pg (26-34); Mean Platelet Volume 8.5 fl (7.4-10.4); Monocytes Absolute Auto 1.3 K/mm3 (0.1-0.6); Monocytes Percent Auto 12.1 % (2.6-8.5); Neutrophils Absolute Auto 6.3 K/mm3 (1.3-6.7); Neutrophils Percent Auto 60.3 % (45.5-73.1); Platelet Count Result 147 k/mm3 (150-375); Red Blood Count 3.39 M/mm3 (4.6-6.20); Red Cell Distribution Width 17.1 % (11.5-14.5); White Blood Count 10.4 K/mm3 (4.5-10.0)
[2022-10-22 00:49] LABS: Alanine Aminotransferase 39 U/L (6-50); Albumin Level 3.2 g/dL (3.5-5.1); Alkaline Phosphatase 91 U/L (38-126); Anion Gap 6 mmol/L (8-16); Aspartate Amino Transferase 34 U/L (17-59); Bilirubin,Total 0.4 mg/dL (0.2-1.3); Blood Urea Nitrogen 16 mg/dL (9-20); Carbon Dioxide 22 mmol/L (22-30); Chloride 106 mmol/L (98-107); Estimated Glomerular Filt Rate > 60; Glucose 257 mg/dL (65-110); Sodium 134 mmol/L (137-145)
[2022-10-22 01:58] VITALS: BP 170/75; PULSE 85; RESP 18; O2SAT 98
[2022-10-22] MEDS: MORPHINE SULFATE (*CRX) 2 MG/ML INJ IV PUSH (02:08)
[2022-10-22 06:28] VITALS: BP 136/95; PULSE 88; RESP 18; O2SAT 99
[2022-10-22 08:06] VITALS: BP 169/88; PULSE 81; RESP 18; TEMP 37; O2SAT 98
== END 2022-10-22 08:09 ==
PROVIDERS: Emergency Provider Preventive Medicine Aerospace Medicine
DX: S39.92XA Unspecified injury of lower back, initial encounter (principal); J84.10 Pulmonary fibrosis, unspecified; I25.10 Atherosclerotic heart disease of native coronary artery without angina pectoris; E11.9 Type 2 diabetes mellitus without complications; I50.9 Heart failure, unspecified; I11.0 Hypertensive heart disease with heart failure; E78.00 Pure hypercholesterolemia, unspecified; N40.0 Benign prostatic hyperplasia without lower urinary tract symptoms; K74.60 Unspecified cirrhosis of liver; F41.9 Anxiety disorder, unspecified; F32.A Depression, unspecified; Z95.1 Presence of aortocoronary bypass graft; Z95.5 Presence of coronary angioplasty implant and graft; Z79.82 Long term (current) use of aspirin; Z79.84 Long term (current) use of oral hypoglycemic drugs; I51.7 Cardiomegaly; R16.1 Splenomegaly, not elsewhere classified; M47.816 Spondylosis without myelopathy or radiculopathy, lumbar region; M47.814 Spondylosis without myelopathy or radiculopathy, thoracic region; M47.812 Spondylosis without myelopathy or radiculopathy, cervical region; M43.22 Fusion of spine, cervical region; W07.XXXA Fall from chair, initial encounter
CPT/HCPCS: 36415; 70450; 71270; 72125; 72130; 72133; 74178; 80053; 85025; 96374; 96375; 99284; J0131; J2270; Q9967

== ENCOUNTER 2022-12-09 10:44 | Observation (INO) | payer MEDICARE, MEDICAID, SELFPAY ==
[2022-12-09] VITALS (22 sets, daily range): BP systolic 106–176; BP diastolic 65–93; PULSE 72–92; RESP 13–30; TEMP 36.3–36.9; O2SAT 97–100; BMI 31.5
--- NOTE | ~2022-12-09 | XR_ITS ---
Clinical Indication: Chest pain AP and lateral views of the chest: Comparison: 09/13/2022 Findings: There is mild interstitial prominence in the lower lobes and perihilar regions. Stable subt le nodular opacity right perihilar region. No focal consolidation or definite pleural effusion. Card iomediastinal silhouette is stable, status post CABG. Bones and soft tissues are unremarkable. Impression: Stable pulmonary findings, as noted above, suggestive of chronic interstitial disease. Reviewed, dictated and finalized at location M. R OPERATOR Impression: Stable pulmonary findings, as noted above, suggestive of chronic interstitial d isease.
--- NOTE | ~2022-12-09 | US_ITS ---
EXAMINATION: US venous doppler [facility] DATE: 12/09/2022 22:47 INDICATION: Lower limb edema. TECHNIQUE: Grayscale ultrasound images without and with compression and Doppler ultrasound images of the bilateral lower extremity veins were obtained. COMPARISON: None. FINDINGS: The visualized portions of right common femoral vein, profunda (deep) femoral vein, femoral vein, pop liteal vein, peroneal veins, posterior tibial veins, and greater saphenous vein outflow are patent. The visualized portions of left common femoral vein, profunda femoral vein, femoral vein, popliteal v ein, peroneal veins, posterior tibial veins, and greater saphenous vein outflow are patent. IMPRESSION: 1. No deep venous thrombosis. Reviewed, dictated and finalized at location A. ANCE WILDLIFE CONTROL OPERATOR
--- NOTE | ~2022-12-09 | CT_ITS ---
Clinical Indication: Chest pain, shortness of breath CT Scan of the Chest with Contrast: Technique: Contiguous sections were acquired throughout the chest after intravenous administration of 100 cc of Omnipaque 350. Dose reduction technique was used on this scan by utilizing automated expos ure control and iterative reconstruction technique. The dose-length product (DLP) was 860.79 mGy-cm. Findings: Numerous calcified mediastinal lymph nodes are present. Probable mild cardiomegaly. There is no filli ng defect in the pulmonary arterial tree to suggest pulmonary embolus. There is no evidence of aortic dissection or aneurysm. There is no evidence of pleural or pericardial effusion. There is extensive dependent groundglass pulmonary disease with mild interstitial prominence. Large c alcified right upper lobe granuloma present. Images through the upper abdomen reveal questionable nodular contour of the liver and multiple calcif ied splenic granulomas, with splenomegaly. Impression: No evidence of pulmonary embolus, aortic dissection, or aortic aneurysm. Probable mild pulmonary edema pattern, versus possibly chronic interstitial disease. Correlate clinic al. Possible cirrhotic liver with splenomegaly. Reviewed, dictated and finalized at [facility]. IC HEALTH REPRESENTATIVE Impression: No evidence of pulmonary embolus, aortic dissection, or aortic aneurysm. Probable mild pulmonary edema pattern, versus possibly chronic interstitial dis ease. Correlate clinical. Possible cirrhotic liver with splenomegaly.
--- NOTE | ~2022-12-09 | NM_ITS ---
NUCLEAR MEDICINE CARDIAC GATED STRESS TEST: HISTORY: Chest pain. TECHNIQUE: Rest images were obtained following intravenous administration of 10.2 mCi Tc99m Tetrofosm in. The patient was infused intravenously with Lexiscan (regadenoson). Then, 32.7 mCi Tc99m Tetrofosm in was administered intravenously, and stress images were obtained. Data was reconstructed into short axis and horizontal and vertical long axis SPECT images. Gated SPECT images were also obtained. FINDINGS: No significant ischemic lesion identified. No distinct evidence for prior myocardial infarction. There is normal left ventricular wall motion. Left ventricular ejection fraction is 64%. IMPRESSION: No significant abnormality seen. Reviewed, dictated and finalized at location . ICAL LABORATORY SCIENTIST
--- NOTE | 2022-12-09 10:45 | ECG_ITS ---
Measurements Intervals [place] Rate: 80 P: 11 [place]: 198 QRS: -42 QRSD: 91 T: 6 QT: 368 QTc: 425 Interpretive Statements SINUS RHYTHM LEFT AXIS DEVIATION LOW QRS VOLTAGE IN PRECORDIAL LEADS INCOMPLETE RIGHT BUNDLE BRANCH BLOCK INFERIOR INFARCT, AGE INDETERMINATE ANTERIOR INFARCT, AGE INDETERMINATE BORDERLINE T WAVE ABNORMALITY- LATERAL LEADS BASELINE ARTIFACT- I, III, AVR, AVL, AVF, V1-V3 ABNORMAL ECG COMPARED TO ECG 09/13/2022 09:58:42 NO SIGNIFICANT CHANGES Electronically Signed On 12-09-2022 10:58:02 SITE DAMAGE PREVENTION TECHNICIAN by George Thompson D.O.
[2022-12-09 11:10] LABS: Basophils Absolute Auto 0.1 K/mm3 (0.0-0.1); Basophils Percent Auto 0.7 % (0.2-1.2); Eosinophils Absolute Auto 0.3 K/mm3 (0-0.3); Eosinophils Percent Auto 4.4 % (0-4.4); Hematocrit 30.2 % (42.0-52.0); Hemoglobin 9.4 g/dL (14.0-18.0); Immature Granulocyte Absolute 0.01 K/mm3 (0.00-0.031); Immature Granulocyte Percent A 0.1 % (0-0.5); Lymphocytes Absolute Auto 2.22 K/mm3 (0.9-3.2); Lymphocytes Percent Auto 30.7 % (18.3-44.2); Mean Corpuscular HGB Conc 31.1 g/dl (32-36); Mean Corpuscular Hemoglobin 25.9 pg (26-34); Mean Corpuscular Volume 83.2 fl (80-100); Mean Platelet Volume 9.3 fl (7.4-10.4); Monocytes Absolute Auto 0.8 K/mm3 (0.1-0.6); Monocytes Percent Auto 10.9 % (2.6-8.5); Neutrophils Absolute Auto 3.8 K/mm3 (1.3-6.7); Neutrophils Percent Auto 53.2 % (45.5-73.1); Platelet Count Result 185 k/mm3 (150-375); Red Blood Count 3.63 M/mm3 (4.6-6.20); Red Cell Distribution Width 17.3 % (11.5-14.5); White Blood Count 7.2 K/mm3 (4.5-10.0)
--- NOTE | 2022-12-09 11:12 | ED.CHESTPAIN ---
HPI - Chest Pain General Chief Complaint: Chest Pain Stated Complaint: chest pain Time Seen by Provider: 12/09/22 11:01 History of Present Illness HPI narrative: 77-year-old male with history of CAD status post CABG and stenting, diabetes, hypertension, hyperlipidemia here via EMS for evaluation of chest pain. Patient states the pain developed about 12 hours ago, present on the right side of his chest. States the pain is severe in nature. Associated with some shortness of breath. Patient does not remember the type of pain that he was having when he had his CABG procedure. He is a poor historian. Received aspirin in route. Denies any leg swelling, fevers or chills, cough or congestion. Related Data Home Medications Medication Instructions Recorded Confirmed alprazolam 1 mg tablet 1 mg PO TID 05/10/20 10/10/20 metformin 500 mg tablet 500 mg PO DAILY 05/10/20 10/10/20 mirabegron 50 mg tablet,extended 50 mg PO DAILY 05/10/20 10/10/20 release 24 hr (Myrbetriq) ranolazine 500 mg tablet,extended 500 mg PO Q12H 05/10/20 10/10/20 release,12 hr (Ranexa) simvastatin 40 mg tablet 40 mg PO DAILY 05/10/20 10/10/20 tamsulosin 0.4 mg capsule 0.4 mg PO DAILY 05/10/20 10/10/20 carvedilol 6.25 mg tablet 6.25 mg PO BID 10/06/20 10/10/20 ergocalciferol (vitamin D2) 1,250 50,000 unit PO 2XW 10/06/20 10/10/20 mcg (50,000 unit) capsule finasteride 5 mg tablet 5 mg PO DAILY 10/06/20 10/10/20 losartan 50 mg tablet 50 mg PO DAILY 10/06/20 10/10/20 pantoprazole 40 mg tablet,delayed 40 mg PO DAILY 10/06/20 10/10/20 release potassium citrate 10 mEq (1,080 40 meq PO DAILY 10/06/20 10/10/20 mg) tablet,extended release pregabalin 75 mg capsule (Lyrica) 75 mg PO BID 10/06/20 10/10/20 primidone 50 mg tablet 50 mg PO BID 10/06/20 10/10/20 sertraline 50 mg tablet 50 mg PO BID 10/06/20 10/10/20 vitamin B complex (B 1 tablet PO DAILY 10/06/20 10/10/20 Complex-Vitamin B12 tablet) aspirin 81 mg tablet,delayed 81 mg PO DAILY 06/14/22 06/14/22 release Allergies Allergy/AdvReac Type Severity Reaction Status Date / Time dextrose 5 % in water Allergy Unknown Verified 12/09/22 12:06 [From Zyvox] linezolid [From Zyvox] Allergy Unknown Verified 12/09/22 12:06 Sulfa (Sulfonamide Allergy Unknown Verified 09/13/22 10:26 Antibiotics) vancomycin Allergy Unknown Verified 12/09/22 12:06 Review of Systems Review of Systems: Gen.: Denies fevers or chills Eyes: Denies eye pain or visual change ENT: Denies congestion Respiratory: Reports shortness of breath CV: Reports chest pain GI: Denies abdominal pain nausea, emesis or diarrhea denies burning, urgency, frequency or hematuria Musculoskeletal: Denies back pain or muscle pain Neuro: Denies numbness, tingling, weakness or focal weakness Skin: Denies rash Except as documented, all other systems reviewed and negative PMFSH Past Medical History Medical History Anxiety BPH (benign prostatic hyperplasia) Cirrhosis Depression Diabetes type 2, controlled History of CHF (congestive heart failure) History of coronary artery disease Hypercholesterolemia Hypertension Surgical History Surgical History History of coronary artery stent placement Hx of CABG 20 years ago Hx of cataract surgery Social History Social History Smoking status: Never smoker Alcohol intake: former 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 Substance use: unknown Additional living arrangements comments: ALONE, CAREGIVER 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 Spiritual care concerns: No Exam Narrative: APPEARANCE: Well appearing, no pain in distress, well-nourished. Head: Normocephalic and atraumatic. EYES: PERRLA/EOMI, conjunctivae clear NOSE: No nasal drainage EARS: External ear normal in appearance THROAT: Oropharynx is clear. Muc
[2022-12-09 11:18] LABS: INR 1.1; Prothrombin Time 14.1 Seconds (11.1-14.7)
[2022-12-09 11:19] LABS: Partial Thromboplastin Time 27.3 SECONDS (22.3-36.8)
[2022-12-09 11:55] LABS: Alanine Aminotransferase 26 U/L (6-50); Albumin Level 3.7 g/dL (3.5-5.1); Alkaline Phosphatase 95 U/L (38-126); Anion Gap 7 mmol/L (8-16); Aspartate Amino Transferase 31 U/L (17-59); Bilirubin,Total 0.3 mg/dL (0.2-1.3); Blood Urea Nitrogen 11 mg/dL (9-20); Calcium 8.8 mg/dL (8.4-10.2); Carbon Dioxide 26 mmol/L (22-30); Chloride 105 mmol/L (98-107); Estimated CRCL calculation 70 ml/min; Estimated Glomerular Filt Rate > 60; Glucose 124 mg/dL (65-110); Potassium 4.3 mmol/L (3.4-5.0); Sodium 138 mmol/L (137-145)
[2022-12-09] MEDS: NITROGLYCERIN SL 0.4 MG TABLET SUBLINGUAL (12:03)
--- NOTE | 2022-12-09 12:03 | PC.NURSE ---
1203: 0.4 SL nitro given, pt rating pain 05/30, 160/73
[2022-12-09 12:06] LABS: NT Pro B Type Natriuretic Pept 1160 pg/mL (19.9-100); Troponin I < 0.012 ng/mL (0.000-0.034)
--- NOTE | 2022-12-09 12:08 | PC.NURSE ---
1208: pt given 0.4 SL nitro, pain at 5/10, BP 140/73
[2022-12-09 12:13] LABS: Influenza A QL RT-PCR Negative (Negative); Influenza B QL RT-PCR Negative (Negative); SARS-CoV-2 RNA PCR Negative
[2022-12-09 12:19] LABS: D Dimer 0.52 ug/mL (<0.48)
--- NOTE | 2022-12-09 12:22 | PC.NURSE ---
1220: 0.4 SL nitro given, pain 5/10, BP 126/70
[2022-12-09] MEDS: FUROSEMIDE INJ 40 MG/4 ML VIAL IV PUSH (13:35)
--- NOTE | 2022-12-09 14:21 | PM.IMHP ---
H&P: HPI History of Present Illness Date/Time: 12/09/22 14:21 Chief Complaint: Chest pain Narrative: This is a 77-year-old male patient who has a history of coronary artery disease with multiple stents and post CABG, diabetes, hypertension, and hyperlipidemia. The patient is here with complaints of chest pain. The pain started over 12 hours ago to the right side of his chest. The patient stated that it was severe in nature and that it was difficult for him to take a deep breath. It is associated with shortness of breath. Patient received an aspirin EN route. He denies any nausea vomiting diarrhea. He denied any diuresis or any radiation down his arm or his neck. His H&H is 9.4 and 30.2 which is comparable to his last H&H. All 3 cardiac enzymes were nonreactive. His BNP is 1160. Blood sugar 149. Chest CTA was read as no evidence of pulmonary embolism, aortic dissection, or aortic aneurysm. Probable mild pulmonary edema pattern versus possibility chronic interstitial disease. Possible cirrhotic liver with splenomegaly. The patient was given IV Lasix and a nitro. Chest x-ray was read as stable pulmonary findings suggestive of chronic interstitial disease. The patient is being admitted to observation status on the date of service 12/09/2022. Review of Systems Review of Systems: See HPI All systems reviewed & are unremarkable except as noted in HPI and below Constitutional: Constitutional: Reports as per HPI and Reports no additional constitutional complaints Eyes: Eyes: Reports as per HPI and Reports no additional eye complaints ENT: Reports system reviewed and no additional complaints, except as documented and Reports Normal hearing present Cardiovascular: Cardiovascular: Reports no additional cardiovascular complaints Respiratory: Respiratory: Reports no additional respiratory complaints and Reports no additional respiratory complaints Gastrointestinal: Gastrointestinal: Reports as per HPI and Reports no additional gastrointestinal complaints Musculoskeletal: Musculoskeletal: Reports no additional musculoskeletal complaints Integumentary/Breasts: Skin/Breast: Reports system reviewed and no additional complaints, except as docu and Reports as per HPI Neurologic: Reports system reviewed and no additional complaints, except as documented, Reports as per HPI and Reports Normal hearing present Psychiatric: Psychiatric: Reports no additional psychiatric complaints and Reports as per HPI Endocrine: Endocrine: Reports no additional endocrine complaints Hematologic/Lymphatic: Hematologic/Lymphatic: Reports no additional hematologic/lymphatic complaints Allergic/Immunologic: Allergic/Immunologic: Reports no additional allergic/immunologic complaints FORMERLY [facility], 1928–1983 Past Medical History Medical History (Updated 12/09/22 @ 21:53 by Renetta Duarte NP) Anemia Anxiety BPH (benign prostatic hyperplasia) CHF (congestive heart failure), NYHA class I Cirrhosis Depression Diabetes type 2, controlled History of CHF (congestive heart failure) History of coronary artery disease Hypercholesterolemia Hypertension Surgical History Surgical History History of coronary artery stent placement Hx of CABG 20 years ago Hx of cataract surgery Family History Family History Father Acute myocardial infarction Diabetes mellitus Sibling Acute myocardial infarction Breast cancer Social History Social History (Updated 12/09/22 @ 21:45 by Renetta Duarte NP) Social History: The patient resides at a local [place] [facility] facility. He is and has 2 children 1 boy and 1 girl. He is a lifelong nonsmoker. He is disabled. Code status DNR Smoking status: Never smoker Alcohol intake: never 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 Substance use: never Lack of Transportation: No Lack of Food: Never True Current Ho
[2022-12-09 14:35] LABS: Troponin I < 0.012 ng/mL (0.000-0.034)
--- NOTE | 2022-12-09 16:05 | ADMGEN ---
This patient, Iain Ricks, was admitted to IMU Room 202-01. Patient/family oriented to hospital policies and general routines including ID bracelet, bed and alarms, visiting hours, pain management, procedures, bathroom and other care routines, personal items, smoking policy, room service/diet, and visiting hours. Information on how to activate the Rapid Response Team has been discussed. Patient/Family are encouraged to report perceived risks to care and to ask questions if they do not understand what they are told or what they should do.
[2022-12-09 18:32] LABS: Troponin I < 0.012 ng/mL (0.000-0.034)
[2022-12-09 21:15] LABS: Glucose Point of Care 149 mg/dl (65-105)
[2022-12-09] MEDS: HYDROcodone/acetaminophen (*CRX) 5-325 MG TABLET 1 TAB PO (23:00)
[2022-12-09] MEDS: MEMANTINE 10 MG TABLET PO (23:02)
[2022-12-09] MEDS: carvediloL 6.25 MG TABLET PO (23:02)
[2022-12-09] MEDS: guaiFENesin 12 HR 600 MG TABCR PO (23:03)
[2022-12-09] MEDS: traZODone HCL 50 MG TABLET 100 MG PO (23:03)
[2022-12-09] MEDS: BETHANECHOL CHLORIDE 25 MG TABLET PO (23:03)
[2022-12-09] MEDS: MELOXICAM 7.5 MG TABLET PO (23:03)
[2022-12-09] MEDS: PRIMIDONE 50 MG TABLET PO (23:04)
[2022-12-09] MEDS: TAMSULOSIN HCL 0.4 MG CAPSULE PO (23:04)
[2022-12-09] MEDS: GABAPENTIN 300 MG CAPSULE PO (23:05)
[2022-12-09] MEDS: LOSARTAN POTASSIUM 50 MG TABLET PO (23:05)
[2022-12-09] MEDS: OMEGA 3 POLYUNSAT FATTY ACIDS 1 GM CAP PO (23:05)
[2022-12-10] VITALS (14 sets, daily range): BP systolic 130–153; BP diastolic 57–63; PULSE 67–84; RESP 12–20; TEMP 36–36.4; O2SAT 95–97
--- NOTE | 2022-12-10 | EST_ITS ---
Patient Info Name: Iain Ricks Age: 77 years : 1945 Gender: Male Ht: 72 in Wt: 232 lbs BSA: 2.34 m2 HR: 75 bpm BP: 137 / 65 mmHg Heart Rhythm: Sinus Rhythm Exam Date: 12/10/2022 11:25 AM Exam Location: [facility] Stress Patient Status: Inpatient Admit Date: 12/09/2022 Staff Ordering Physician: Renetta Duarte NP Attending Provider: Pop Frank MD Exercise Technologist: Juanita Telles, SORAYA Nurse: rashi warren Exam Type: CA stress jeniffer w NM Study Info Indications R07.9 - Chest pain, unspecified A regadenoson stress test was performed. Summary 1. Normal sinus rhythm with left anterior superior hemiblock. 2. No ischemic ST segment abnormalities following Lexiscan injection. 3. Clinically and electrocardiographically unremarkable Lexiscan stress test. 4. Myocardial perfusion imaging study to be dictated by Radiology. Protocol: Lexiscan Stress ECG Details Stage: REST Duration (min): 0 min : 58 sec HR (bpm): 78 SBP (mmHg): 137 DBP (mmHg): 65 Stage: REST Duration (min): 6 min : 54 sec HR (bpm): 75 SBP (mmHg): 137 DBP (mmHg): 65 Stage: STAGE 1 Duration (min): 1 min : 0 sec HR (bpm): 86 SBP (mmHg): 118 DBP (mmHg): 59 Stage: RECOVERY Duration (min): 1 min : 0 sec HR (bpm): 86 SBP (mmHg): 118 DBP (mmHg): 59 Stage: RECOVERY Duration (min): 2 min : 0 sec HR (bpm): 84 SBP (mmHg): 118 DBP (mmHg): 59 Stage: RECOVERY Duration (min): 3 min : 0 sec HR (bpm): 85 SBP (mmHg): 78 DBP (mmHg): 46 Stage: RECOVERY Duration (min): 4 min : 0 sec HR (bpm): 80 SBP (mmHg): 78 DBP (mmHg): 46 Stage: RECOVERY Duration (min): 5 min : 0 sec HR (bpm): 84 SBP (mmHg): 84 DBP (mmHg): 49 Stage: RECOVERY Duration (min): 6 min : 0 sec HR (bpm): 83 SBP (mmHg): 84 DBP (mmHg): 49 Stage: RECOVERY Duration (min): 6 min : 8 sec HR (bpm): 80 SBP (mmHg): 84 DBP (mmHg): 49 Rest HR: 75 bpm Peak HR: 88 bpm Rest Sys BP: 137 mmHg Peak Sys BP: 118 mmHg Max Pred HR: 145 bpm % Max Pred HR: 61 % Target HR: 123 bpm Max RPP: 10,384 bpm*mmHg Termination Reason: Completed protocol Cardiac Symptoms: None Total Time: 1 min : 0 sec Rest Rolon BP: 65 mmHg Peak Rolon BP: 59 mmHg Total Dose: 0.4 mg Resting ECG Normal sinus rhythm with left anterior superior hemiblock. Stress ECG No ischemic ST segment abnormalities following Lexiscan injection. Arrhythmias Occasional PVCs noted. Report Signatures
--- NOTE | 2022-12-10 | ECHO_ITS ---
Patient Info Name: Iain Ricks Age: 77 years : 1945 Gender: Male Ht: 67 in Wt: 261 lbs BSA: 2.42 m2 HR: 74 bpm BP: 153 / 61 mmHg Heart Rhythm: Sinus Rhythm Technical Quality: Fair Exam Date: 12/10/2022 9:08 AM Exam Location: [facility]monary Patient Status: Inpatient Admit Date: 12/09/2022 Staff Ordering Physician: Renetta Duarte NP Caustics Loader: Elvira Rao RDCS Attending Provider: Pop Frank MD Referring Physician: Felicia JOHNSON; Exam Type: CA echo dop color flow w con Study Info Indications - chf Complete two-dimensional, color flow and Doppler transthoracic echocardiogram is performed with contrast to opacify the left ventricle and to improve the deliniation of the left ventricle endocardial borders. Contrast/Agitated Saline Contrast/Ag. Saline: Definity Amount: 3.00 ml Administered By: Elvira Rao RDCS Existing IV Access: Yes IV Access Condition: patent with no signs of infiltration Summary 1. Left ventricular hypertrophy with normal LV size and normal systolic function. 2. No ischemic wall motion abnormalities were seen. 3. Mildly sclerotic aortic valve which is not stenotic. Left Ventricle Left ventricular chamber dimension is normal. Left ventricular systolic function is normal, estimated at 60-65%. There is moderate concentric increased left ventricular wall thickness. The left ventricular diastolic function is grade I diastolic dysfunction. Right Ventricle Right ventricular chamber dimension is normal. Left Atria Left atrial chamber dimension is mildly enlarged. Right Atria Right atrial chamber dimension is normal. Aortic Valve The aortic valve is trileaflet. There is mild aortic valve sclerosis. Pulmonic Valve The pulmonic valve is normal. Mitral Valve The mitral valve has normal leaflets. Tricuspid Valve The tricuspid valve leaflets are normal. Pericardium/Pleural The pericardium appears normal. Aorta The aortic root size at the sinus of Valsalva is normal. Left Ventricular Outflow Tract Name Value Normal LVOT 2D LVOT Diameter 2.14 cm LVOT Doppler LVOT Peak Gradient 2 mmHg LVOT Mean Gradient 1 mmHg LVOT VTI 15.49 cm LVOT VTI/AV VTI Ratio 0.46 LVOT Stroke Volume 55.83 ml LVOT CO 3.90 l/min LVOT CI 1.61 L/min/m2 Pulmonic Valve Name Value Normal RVOT Doppler RVOT Peak Gradient 2 mmHg PV Doppler PV Peak Gradient 7 mmHg Mitral Valve
[2022-12-10 05:11] LABS: Basophils Percent Auto 0.5 % (0.2-1.2); Eosinophils Absolute Auto 0.4 K/mm3 (0-0.3); Hematocrit 31.4 % (42.0-52.0); Hemoglobin 9.9 g/dL (14.0-18.0); Immature Granulocyte Absolute 0.01 K/mm3 (0.00-0.031); Immature Granulocyte Percent A 0.1 % (0-0.5); Lymphocytes Absolute Auto 2.69 K/mm3 (0.9-3.2); Lymphocytes Percent Auto 35.6 % (18.3-44.2); Mean Corpuscular HGB Conc 31.5 g/dl (32-36); Mean Corpuscular Hemoglobin 26.1 pg (26-34); Mean Corpuscular Volume 82.6 fl (80-100); Mean Platelet Volume 8.6 fl (7.4-10.4); Monocytes Absolute Auto 0.9 K/mm3 (0.1-0.6); Monocytes Percent Auto 11.8 % (2.6-8.5); Neutrophils Absolute Auto 3.6 K/mm3 (1.3-6.7); Platelet Count Result 166 k/mm3 (150-375); Red Cell Distribution Width 16.4 % (11.5-14.5); White Blood Count 7.6 K/mm3 (4.5-10.0)
[2022-12-10] MEDS: HYDROcodone/acetaminophen (*CRX) 5-325 MG TABLET 1 TAB PO ×3 (05:17→18:21)
[2022-12-10 05:21] LABS: Hemoglobin A1C 6.7 % (<5.7)
[2022-12-10 05:27] LABS: Alanine Aminotransferase 24 U/L (6-50); Albumin Level 3.5 g/dL (3.5-5.1); Alkaline Phosphatase 103 U/L (38-126); Anion Gap 6 mmol/L (8-16); Aspartate Amino Transferase 33 U/L (17-59); Bilirubin,Total 0.6 mg/dL (0.2-1.3); Blood Urea Nitrogen 13 mg/dL (9-20); Calcium 8.9 mg/dL (8.4-10.2); Carbon Dioxide 30 mmol/L (22-30); Chloride 101 mmol/L (98-107); Estimated CRCL calculation 65 ml/min; Estimated Glomerular Filt Rate > 60; Glucose 106 mg/dL (65-110); Lactate Dehydrogenase 93 U/L (120-246); Magnesium 1.9 mg/dL (1.6-2.3); Potassium 4.6 mmol/L (3.4-5.0); Sodium 137 mmol/L (137-145)
[2022-12-10 06:19] LABS: Thyroid Stimulating Hormone Reflex 0.352 uIU/mL (0.465-4.68)
[2022-12-10 08:32] LABS: Glucose Point of Care 118 mg/dl (65-105)
[2022-12-10 08:33] LABS: Free T4 Free Thyroxine Reflex 1.24 ng/dL (0.78-2.19)
[2022-12-10] MEDS: PERFLUTREN LIPID MICROSPHERES 1.5 ML VIAL DILUTED TO 10 ML TOTAL VOLUME IV PUSH (09:40)
[2022-12-10] MEDS: DICLOFENAC SODIUM 1% 100 GM GEL (*BKC) 1 APPLIC TOPICAL ×2 (10:20→18:29)
[2022-12-10] MEDS: TOLNAFTATE 1% POWDER 45 GM BTL 1 APPLIC TOPICAL (10:20)
[2022-12-10] MEDS: SILVERGEL (ELTA) 45 ML 1 APPLIC TOPICAL (10:20)
[2022-12-10] MEDS: busPIRone HCL 2.5 MG TABLET PO ×2 (10:22→18:18)
[2022-12-10] MEDS: LOSARTAN POTASSIUM 50 MG TABLET PO (10:22)
[2022-12-10] MEDS: ALPRAZolam (*CRX) 0.5 MG TABLET 1 MG PO ×2 (10:22→18:18)
[2022-12-10] MEDS: guaiFENesin 12 HR 600 MG TABCR PO (10:23)
[2022-12-10] MEDS: MELOXICAM 7.5 MG TABLET PO (10:23)
[2022-12-10] MEDS: busPIRone HCL 5 MG TABLET PO ×2 (10:23→18:18)
[2022-12-10] MEDS: PYRIDOXINE HCL 50 MG TABLET 100 MG PO (10:23)
[2022-12-10] MEDS: GABAPENTIN 300 MG CAPSULE PO (10:24)
[2022-12-10] MEDS: FINASTERIDE 5 MG TABLET PO (10:24)
[2022-12-10] MEDS: TAMSULOSIN HCL 0.4 MG CAPSULE PO (10:24)
[2022-12-10] MEDS: carvediloL 6.25 MG TABLET PO (10:24)
[2022-12-10] MEDS: VITAMIN B COMPLEX CAPSULE 1 CAP PO (10:24)
[2022-12-10] MEDS: CHOLECALCIFEROL 1,000 UNITS TABLET 1000 UNITS PO (10:25)
[2022-12-10] MEDS: BETHANECHOL CHLORIDE 25 MG TABLET PO (10:25)
[2022-12-10] MEDS: amLODIPine BESYLATE 5 MG TABLET PO (10:25)
[2022-12-10] MEDS: CYANOCOBALAMIN 1,000 MCG TABLET 1000 MCG PO (10:25)
[2022-12-10] MEDS: SERTRALINE HCL 50 MG TABLET 100 MG PO (10:25)
[2022-12-10] MEDS: ASPIRIN 81 MG ENTERIC TABLET PO (10:25)
[2022-12-10] MEDS: MEMANTINE 10 MG TABLET PO (10:25)
[2022-12-10] MEDS: OMEGA 3 POLYUNSAT FATTY ACIDS 1 GM CAP PO (10:25)
[2022-12-10] MEDS: PRIMIDONE 50 MG TABLET PO (10:26)
[2022-12-10] MEDS: PANTOPRAZOLE SODIUM IV 40 MG VIAL IV PUSH (10:26)
--- NOTE | 2022-12-10 11:19 | IVDEFINITY ---
Prior to administration of IV Definity the patient was educated on the risks and benefits of the imaging enhancing agent including potential adverse side effects. The patient verbalized understanding. Allergies were verified. No exclusion criteria were identified and at least one of the following inclusion criteria were met: 1) physician request, 2) patient technically difficult to image (per the [place] [employer] Echocardi[employer] guidelines of two or more segments not discernable within the apical view), or 3) questionable left ventricular function. ?
[2022-12-10 11:21] LABS: Total Triiodothyronine (T3) 1.04 NG/ML (0.97-1.69)
[2022-12-10 13:29] LABS: Glucose Point of Care 161 mg/dl (65-105)
--- NOTE | 2022-12-10 14:37 | PM.CNCAR ---
Assessment and Plan Assessment and plan (1) Chest pain: Code(s): R07.9 - Chest pain, unspecified Status: Acute Assessment and Plan: Episode of atypical sounding chest pain. His workup has been unremarkable with negative serial troponin levels, EKG with no acute ischemic changes, and Lexiscan stress test did not show any infarct or ischemia and an ejection fraction of 64%. He has not had any recurrence of chest pain since admission to the hospital. For his history of coronary artery disease, would continue aspirin, statin, and risk factor modification. No further cardiac testing or evaluation indicated at this time. From a cardiac perspective, would be okay for him to discharge back to the group home today. History of Present Illness History of Present Illness Consult date/time: 12/10/22 14:37 Requesting physician: Kayley Fletcher PA-C Consult reason: chest pain Reason For Visit: chest pain Narrative: Mr. Ricks is a 77-year-old male with a past medical history of coronary artery disease who reports a distant history of CABG and 12 stents. He does not remember the date or the facility at which these interventions took place. He also has diabetes, hypertension, and hyperlipidemia. He resides in a group home. Patient states that he was getting dressed yesterday and began to experience some weakness and right-sided chest pain. He describes the pain as sharp pain that started on the right side of his chest and traveled to the left side of his chest. He states that when group home staff was notified that he was complaining of chest pain EMS was called. He was brought to the hospital here for evaluation. He received a full dose of aspirin EN route to the hospital. He has not had any chest pain since his arrival to the hospital. Serial troponin levels were drawn and were negative. EKG showed sinus rhythm with an incomplete right bundle branch block, unchanged from previous EKG on file. Currently, he is resting comfortably in bed eating a meal and does not have any complaints whatsoever. Review of Systems Constitutional: Constitutional: Denies chills, Denies fever(s), Denies headache(s) and Denies malaise Eyes: Eyes: Denies change in vision ENT: Reports Normal hearing present, Denies dizziness, Denies headache(s) and Denies hearing loss Cardiovascular: Cardiovascular: Reports chest pain, Denies chest pain at rest, Denies chest pain with activity, Denies syncope, Denies leg edema, Denies palpitations, Denies dyspnea and Denies dyspnea on exertion Respiratory: Respiratory: Denies cough, Denies dyspnea, Denies dyspnea on exertion and Denies wheezing Gastrointestinal: Gastrointestinal: Denies abdominal pain, Denies constipation and Denies diarrhea Genitourinary: Genitourinary: Denies hematuria and Denies dysuria Musculoskeletal: Musculoskeletal: Denies myalgias, Denies arthralgias and Denies muscle cramps Integumentary/Breasts: Skin/Breast: Denies wounds Neurologic: Denies Normal hearing present, Denies confusion, Denies dizziness, Denies syncope and Denies headache(s) Psychiatric: Psychiatric: Denies anxiety, Denies confusion and Denies depression Endocrine: Endocrine: Denies cold intolerance, Denies flushing, Denies heat intolerance and Denies palpitations Hematologic/Lymphatic: Hematologic/Lymphatic: Denies easy bleeding and Denies easy bruising Allergic/Immunologic: Allergic/Immunologic: Denies wheezing PMFSH Past Medical History Medical History Anemia Anxiety BPH (benign prostatic hyperplasia) CHF (congestive heart failure), NYHA class I Cirrhosis Depression Diabetes type 2, controlled History of CHF (congestive heart failure) History of coronary artery disease Hypercholesterolemia Hypertension Surgical History Surgical History History of coronary artery stent placement Hx
--- NOTE | 2022-12-10 15:31 | PC.NURSE ---
On 12/10/22, the student, [Heaven Fajardo], provided care and completed [facility] documentation on this patient. I have reviewed the student's documentation and agree with the findings.
[2022-12-10 16:01] LABS: Glucose Point of Care 175 mg/dl (65-105)
--- NOTE | 2022-12-10 16:26 | PM.DS ---
DS: Admitting Diagnosis Discharge Date 12/10/22 Admitting Diagnosis Chest pain DS: Discharge Diagnosis Discharge Diagnosis (1) Chest pain: Code(s): R07.9 - Chest pain, unspecified Status: Acute (2) BPH (benign prostatic hyperplasia): Code(s): N40.0 - Benign prostatic hyperplasia without lower urinary tract symptoms Status: Acute (3) Diabetes type 2, controlled: Code(s): E11.9 - Type 2 diabetes mellitus without complications Status: Acute (4) Depression: Code(s): F32.9 - Major depressive disorder, single episode, unspecified Status: Acute (5) Hypercholesterolemia: Code(s): E78.00 - Pure hypercholesterolemia, unspecified Status: Acute (6) History of coronary artery disease: Code(s): Z86.79 - Personal history of other diseases of the circulatory system Status: Acute (7) CHF (congestive heart failure), NYHA class I: Code(s): I50.9 - Heart failure, unspecified Status: Acute (8) Anemia: Code(s): D64.9 - Anemia, unspecified Status: Acute (9) Anxiety: Code(s): F41.9 - Anxiety disorder, unspecified Status: Acute (10) Cirrhosis: Code(s): K74.60 - Unspecified cirrhosis of liver Status: Acute DS: Summary Hospital Course Reason for hospitalization: 77yo male her for chest pain. Please see H&P for details. Hospital Course: Patient presents from the alf with complaints pleuritic right-sided chest pain and shortness of breath. Hemoglobin was 9.4 which is chronic. Troponin was negative x3. BNP was 1160. Chest CTA showed no evidence of pulmonary embolism, aortic dissection or aortic aneurysm. Probable mild pulmonary edema versus chronic interstitial lung disease. Possible cirrhotic liver and splenomegaly also noted. Patient has a history of heavy alcohol use in the past. EKG showed normal sinus rhythm rate of 80 with age indeterminate inferior and anterior infarct. No significant change from an EKG in August. Cardiology was consulted. D-dimer was mildly elevated. Lower extremity venous Dopplers were negative for DVT. Lexiscan stress test showed no significant ischemic lesions identified. EF was 64%. Echocardiogram is pending. Patient has not had a recurrent chest pain since admission. He overall did well and was able to be discharged back to alf on 12/10/2022. Status at Discharge Cognitive/behavioral status at discharge: stable Time Spent with Patient Time attestation: Total time spent providing and/or coordinating discharge services: 35 minutes Time spent: Greater than 30 minutes Exam Narrative: Gen - NARD Chest - left base inspiratory crackles o/w clear CV - RRR S1/S2 Abd - Soft, NT/ND, Positive BS Ext - No pedal edema Psych - Nml mood and affect Skin - Warm and dry DS: Data Data Completed and Pending Labs on day of discharge: Labs from last 24 hours 12/10/22 12/10/22 12/10/22 15:58 13:24 07:25 WBC RBC Hgb Hct MCV MCH MCHC RDW Plt Count MPV Immature Gran % (Auto) Neut % (Auto) Lymph % (Auto) [place] % (Auto) Eos % (Auto) Baso % (Auto) Lymph # (Auto) [place] # (Auto) Eos # (Auto) Baso # (Auto) Abs Immat Gran (auto) Absolute Neuts (auto) Absolute Nucleated RBC Nucleated RBC % Sodium Potassium Chloride Carbon Dioxide Anion Gap BUN Creatinine Estim Creat Clear Calc Estimated GFR Glucose POC Capillary Glucose 175 H 161 H 118 H Hemoglobin A1c Calcium Magnesium Total Bilirubin AST ALT Alkaline Phosphatase Lactate Dehydrogenase Troponin I Total Protein Albumin TSH (Reflex) Free T4 Total T3 12/10/22 12/10/22 12/10/22 03:48 03:48 03:48 WBC RBC Hgb Hct MCV MCH MCHC RDW Plt Count MPV Immature Gran % (Auto) Neut % (Auto) Lymph %
--- NOTE | 2022-12-14 08:57 | OBADM ---
This patient, Iain Ricks, admitted to the OB room IMU Room 202 for observation. Patient/family oriented to hospital policies and general routines including ID bracelet, bed and alarms, visiting hours, pain management, procedures, bathroom and other care routines, personal items, smoking policy, room service/diet, and visiting hours. Patient/Family are encouraged to report perceived risks to care and to ask questions if they do not understand what they are told or what they should do.
--- NOTE | 2022-12-14 08:57 | PC.NURSE ---
Echo report given to Dr. Frank to review. Stool cx are negative. Dr. Frank aware.
== END 2022-12-10 20:05 ==
LOC: ANHED 13:14 → ANHIMU 15:31
PROVIDERS: Nurse Practitioner; Physician Assistant; Admitting Provider Internal Medicine; Emergency Provider Emergency Medicine; PCP Internal Medicine; Visit Provider Internal Medicine
DX: R07.9 Chest pain, unspecified (principal); N40.0 Benign prostatic hyperplasia without lower urinary tract symptoms; E11.9 Type 2 diabetes mellitus without complications; F32.9 Major depressive disorder, single episode, unspecified; Z86.79 Personal history of other diseases of the circulatory system; E78.00 Pure hypercholesterolemia, unspecified; I11.0 Hypertensive heart disease with heart failure; I50.9 Heart failure, unspecified; D64.9 Anemia, unspecified; F41.9 Anxiety disorder, unspecified; K74.60 Unspecified cirrhosis of liver; R06.02 Shortness of breath; Z20.822 Contact with and (suspected) exposure to COVID-19; I25.10 Atherosclerotic heart disease of native coronary artery without angina pectoris; Z95.1 Presence of aortocoronary bypass graft; Z95.5 Presence of coronary angioplasty implant and graft; R79.89 Other specified abnormal findings of blood chemistry; I35.8 Other nonrheumatic aortic valve disorders; R94.31 Abnormal electrocardiogram [ECG] [EKG]; R91.8 Other nonspecific abnormal finding of lung field; I45.10 Unspecified right bundle-branch block; Z79.84 Long term (current) use of oral hypoglycemic drugs; Z79.82 Long term (current) use of aspirin; Z79.891 Long term (current) use of opiate analgesic; Z79.899 Other long term (current) drug therapy; Z82.49 Family history of ischemic heart disease and other diseases of the circulatory system
CPT/HCPCS: 36415; 71046; 71275; 78452; 80053; 82948; 83036; 83615; 83735; 83880; 84439; 84443; 84480; 84484; 85025; 85380; 85610; 85730; 87045; 87427; 87636; 93005; 93017; 93970; 96374; 96375; 99285; A9270; A9502; C8929; C9113; G0378; J1940; J2785; Q9957; Q9967